=== PATIENT | female | born 1960 | race Caucasian/White ===

== ENCOUNTER 2017-05-14 00:58 | Emergency (ER) | payer SELFPAY | END 2017-05-14 01:59 | disposition home or self-care (01) | LOC: ERS 00:58 | DX: F10.129 Alcohol abuse with intoxication, unspecified (principal); I10 Essential (primary) hypertension; F41.9 Anxiety disorder, unspecified | CPT/HCPCS: 99284 ==

== ENCOUNTER 2023-12-28 11:35 | Emergency (ER) | payer SELFPAY ==
[2023-12-28] MEDS ORDERED: Ketorolac Tromethamine 30 MG (1 mL) VIAL ONE (13:42)
[2023-12-28] MEDS ORDERED: Lorazepam 2 MG/ML VIAL ONE (13:43)
[2023-12-28 15:16] LABS: #Basophils 0.07 10x3/uL (0.0-0.2); %Basophils 0.9 % (0.0-1.0); %Eosinophils 0.6 % (0.0-10.0); %Lymphocytes 15.7 % (21.0-51.0); %Monocytes 10.3 % (0.0-10.0); %Neutrophils 72.2 % (42.0-75.0); Hematocrit 35.6 % (36.0-47.0); Hemoglobin 12.4 g/dL (12.0-16.0); Mean Corpuscular HGB CONC 34.8 g/dL (32.0-36.0); Mean Corpuscular Hemoglobin 38.4 pg (27.0-31.0); Mean Corpuscular Volume 110.2 fL (78.0-98.0); Mean Platelet Volume 10.2 fL (7.4-10.4); Platelet Count 181 10x3/uL (130-400); RBC Distribution Width 13.1 % (11.5-14.5); Red Blood Cell (RBC) Count 3.23 mill/uL (4.20-5.40)
[2023-12-28 15:29] LABS: ALT (SGPT) 48 U/L (8-55); AST (SGOT) 163 U/L (5-34); Albumin 2.3 g/dL (3.4-4.8); Alkaline Phosphatase 183 U/L (40-110); Anion Gap 16 mmol/L (10-20); BUN (Urea Nitrogen) 4 mg/dL (9.8-20.1); Bilirubin, Total 2.6 mg/dL (0.2-1.2); Calc. Creatinine Clearance 0 mL/min (70-130); Calcium 8.2 mg/dL (7.8-10.44); Carbon Dioxide 19 mmol/L (23-31); Chloride 101 mmol/L (98-107); Estimated GFR 102; Globulin 4.6 g/dL (2.4-3.5); Glucose 96 mg/dL (80-115); Potassium 3.4 mmol/L (3.5-5.1); Protein, Total 6.9 g/dL (5.8-8.1); Sodium 133 mmol/L (136-145)
[2023-12-28 15:31] LABS: Acetaminophen Less than 10 mcg/mL (10.0-30.0); Alcohol Less than 10.0 mg/dL (Less than 10); Salicylate Less than 8.0 mg/dL (15.0-30.0)
[2023-12-28 15:32] LABS: INR-International Normal Ratio 1.4; PTT 32.2 sec (22.9-36.1); Prothrombin Time 17.4 sec (12.0-14.7)
[2023-12-28] MEDS ORDERED: Iopamidol-370 76% 500 ML MDV (1 ML CHARGE) ONE (15:39)
[2023-12-28 15:45] LABS: Macrocytosis SLIGHT = 6-15 cells HPF (0-5); Platelet Adequacy Comment Platelets Normal
[2023-12-28] MEDS ORDERED: Thiamine HCl 200 MG/2 ML VIAL ONE (15:50)
== END 2023-12-28 18:30 | disposition home or self-care (01) ==
LOC: ERS 11:35
DX: R18.8 Other ascites (principal); R94.5 Abnormal results of liver function studies; I10 Essential (primary) hypertension
CPT/HCPCS: 36415; 74177; 80053; 80307; 82140; 85025; 85610; 85730; 96374; 96375; J1885; J2060; J3411; Q9967

== ENCOUNTER 2024-02-15 22:09 | Inpatient (IN) | payer SELFPAY ==
[2024-02-15] MEDS ORDERED: Ondansetron PF 4 MG/2 ML Vial ONE (22:21)
[2024-02-15] MEDS ORDERED: Morphine 4 MG/ML VIAL ONE (22:21)
[2024-02-15] MEDS ORDERED: Thiamine HCl 200 MG/2 ML VIAL ONE (23:00)
[2024-02-15 23:18] LABS: #Basophils 0.06 10x3/uL (0.0-0.2); %Basophils 0.6 % (0.0-1.0); %Eosinophils 0.7 % (0.0-10.0); %Lymphocytes 25.9 % (21.0-51.0); %Monocytes 11.3 % (0.0-10.0); %Neutrophils 61.3 % (42.0-75.0); Hematocrit 33.5 % (36.0-47.0); Hemoglobin 11.6 g/dL (12.0-16.0); Mean Corpuscular HGB CONC 34.6 g/dL (32.0-36.0); Mean Corpuscular Hemoglobin 39.6 pg (27.0-31.0); Mean Corpuscular Volume 114.3 fL (78.0-98.0); Mean Platelet Volume 9.3 fL (7.4-10.4); Platelet Count 229 10x3/uL (130-400); RBC Distribution Width 13.6 % (11.5-14.5); Red Blood Cell (RBC) Count 2.93 mill/uL (4.20-5.40)
[2024-02-15 23:26] LABS: INR-International Normal Ratio 1.5; PTT 35.2 sec (22.9-36.1); Prothrombin Time 17.9 sec (12.0-14.7)
[2024-02-15 23:30] LABS: ALT (SGPT) 26 U/L (8-55); AST (SGOT) 92 U/L (5-34); Albumin 1.9 g/dL (3.4-4.8); Alkaline Phosphatase 133 U/L (40-110); Anion Gap 17 mmol/L (10-20); BUN (Urea Nitrogen) 5 mg/dL (9.8-20.1); Bilirubin, Total 3.6 mg/dL (0.2-1.2); Calc. Creatinine Clearance 0 mL/min (70-130); Carbon Dioxide 15 mmol/L (23-31); Chloride 101 mmol/L (98-107); Estimated GFR 105; Globulin 5.2 g/dL (2.4-3.5); Glucose 94 mg/dL (80-115); Lipase 12 U/L (8-78); Potassium 4.2 mmol/L (3.5-5.1); Protein, Total 7.1 g/dL (5.8-8.1); Sodium 129 mmol/L (136-145)
[2024-02-16] MEDS ORDERED: Sodium Chloride 0.9% 100 ML ONE ×2 (00:11→01:32)
[2024-02-16] MEDS ORDERED: cefTRIAXone (ROCEPHIN) 1 GM VIAL ONE ×2 (00:11→01:32)
[2024-02-16] MEDS ORDERED: Lidocaine 1% w/Epinephrine 1:100K 20 ML VIAL ONE (00:20)
[2024-02-16 01:52] LABS: WBC/Nucleated-Auto (BF) 117 /cu.mm
[2024-02-16 02:00] LABS: BF Color Yellow; Body Fluid Source Ascites Body Fluid; Clarity Clear (Clear); Tube # EDTA
[2024-02-16 02:07] LABS: Lactic Acid 1.5 mmol/L (0.5-2.2)
[2024-02-16 02:12] LABS: RBC Count-Automated (BF) 5 /cu.mm
[2024-02-16 02:14] LABS: BF Segmented Neutrophils 19 %; Cell Count Non Hematic 47 %; Lymphocytes 34 %
[2024-02-16 02:17] VITALS: BMI 20.3
[2024-02-16] MEDS ORDERED: Acetaminophen 325 MG TAB PO PRN (06:01)
[2024-02-16] MEDS ORDERED: Ondansetron PF 4 MG/2 ML Vial IVP PRN (06:01)
[2024-02-16] MEDS ORDERED: Ondansetron ODT 4 MG TAB PO PRN (06:01)
[2024-02-16] MEDS ORDERED: Acetaminophen 650 MG Suppository PR PRN (06:01)
[2024-02-16 06:53] LABS: #Basophils 0.06 10x3/uL (0.0-0.2); %Basophils 0.8 % (0.0-1.0); %Eosinophils 0.5 % (0.0-10.0); %Lymphocytes 21.1 % (21.0-51.0); %Monocytes 12.3 % (0.0-10.0); Hematocrit 33.6 % (36.0-47.0); Hemoglobin 11.4 g/dL (12.0-16.0); Mean Corpuscular HGB CONC 33.9 g/dL (32.0-36.0); Mean Corpuscular Hemoglobin 40.9 pg (27.0-31.0); Mean Corpuscular Volume 120.4 fL (78.0-98.0); Mean Platelet Volume 9.9 fL (7.4-10.4); Platelet Count 211 10x3/uL (130-400); RBC Distribution Width 13.9 % (11.5-14.5); Red Blood Cell (RBC) Count 2.79 mill/uL (4.20-5.40)
[2024-02-16 07:03] LABS: Anion Gap 14 mmol/L (10-20); BUN (Urea Nitrogen) 5 mg/dL (9.8-20.1); Calc. Creatinine Clearance 87 mL/min (70-130); Calcium 7.7 mg/dL (7.8-10.44); Carbon Dioxide 17 mmol/L (23-31); Chloride 101 mmol/L (98-107); Estimated GFR 104; Glucose 100 mg/dL (80-115); Potassium 4.4 mmol/L (3.5-5.1); Sodium 128 mmol/L (136-145)
[2024-02-16] MEDS ORDERED: Lorazepam 2 MG/ML VIAL IM PRN (08:40)
[2024-02-16] MEDS ORDERED: Lorazepam 1 MG TAB PO PRN (08:40)
[2024-02-16] MEDS ORDERED: Electrolyte Replacement Protocol 1 EACH FS SCH (08:45)
[2024-02-16] MEDS: Furosemide 20 MG (2 mL) VIAL SLOW IVP SCH (09:41)
[2024-02-16] MEDS: Thiamine HCl 200 MG/2 ML VIAL SLOW IVP SCH (09:43)
[2024-02-16] MEDS: traMADol HCl 50 MG TAB PO PRN (09:44)
[2024-02-16] MEDS: Folic Acid 1 MG TAB PO SCH (09:48)
[2024-02-16] MEDS: Multivit, Therapeutic 1 TAB PO SCH (09:49)
[2024-02-16] MEDS: Spironolactone 100 MG TAB PO SCH (09:49)
[2024-02-16 11:03] LABS: #Basophils 0.05 10x3/uL (0.0-0.2); %Basophils 0.6 % (0.0-1.0); %Eosinophils 1.2 % (0.0-10.0); %Lymphocytes 15.8 % (21.0-51.0); %Monocytes 9.4 % (0.0-10.0); %Neutrophils 72.7 % (42.0-75.0); Hematocrit 39.6 % (36.0-47.0); Hemoglobin 13.5 g/dL (12.0-16.0); Mean Corpuscular HGB CONC 34.1 g/dL (32.0-36.0); Mean Corpuscular Hemoglobin 39.9 pg (27.0-31.0); Mean Corpuscular Volume 117.2 fL (78.0-98.0); Mean Platelet Volume 9.2 fL (7.4-10.4); Platelet Count 261 10x3/uL (130-400); RBC Distribution Width 13.5 % (11.5-14.5); Red Blood Cell (RBC) Count 3.38 mill/uL (4.20-5.40)
[2024-02-16 11:11] LABS: ALT (SGPT) 34 U/L (8-55); AST (SGOT) 100 U/L (5-34); Albumin 2.1 g/dL (3.4-4.8); Alkaline Phosphatase 149 U/L (40-110); Anion Gap 12 mmol/L (10-20); BUN (Urea Nitrogen) 5 mg/dL (9.8-20.1); Bilirubin, Direct 2.4 mg/dL (0.1-0.3); Bilirubin, Total 3.5 mg/dL (0.2-1.2); Calc. Creatinine Clearance 74 mL/min (70-130); Calcium 8.1 mg/dL (7.8-10.44); Carbon Dioxide 24 mmol/L (23-31); Chloride 97 mmol/L (98-107); Estimated GFR 100; Globulin 5.8 g/dL (2.4-3.5); Glucose 106 mg/dL (80-115); Magnesium 1.7 mg/dL (1.6-2.6); Phosphorus 2.8 mg/dL (2.3-4.7); Potassium 3.2 mmol/L (3.5-5.1); Protein, Total 7.9 g/dL (5.8-8.1); Sodium 130 mmol/L (136-145)
[2024-02-16 11:42] LABS: HBCM Index 0.12 S/CO (0-0.79); HBsAg Index 0.22 S/CO (0-0.99); Hep A IgM AB NONREACTIVE (NonReactive); Hep A IgM S/CO 0.16 S/CO (0-0.79); Hep B Surf Ag NONREACTIVE S/CO (NonReactive); Hep C IgG Ab NONREACTIVE S/CO (NonReactive); Hep C Index 0.24 S/CO (0-0.79); Hepatitis B Core IgM Abs NONREACTIVE S/CO (NonReactive)
[2024-02-16] MEDS: Multivitamins, Adult 10 ML, Folic Acid 1 MG, Thiamine HCl 100 MG, Admixture Fee 1 EACH ... IV SCH (12:27)
[2024-02-16] MEDS: Potassium Chloride 20 MEQ TAB PO SCH (12:28)
[2024-02-16] MEDS: Magnesium 2 GM/50 ML(in water) 2 GM in Premix 1 BAG IVPB SCH (12:31)
[2024-02-16] MEDS: chlordiazePOXIDE HCl 5 MG CAP PO SCH (12:32)
[2024-02-16] MEDS: Aluminum & Magnesium Hydroxide 60 ML, diphenhydrAMINE 150 MG, Lidocaine 2% Viscous Solu... SSW SCH (13:57)
[2024-02-16] MEDS ORDERED: Iopamidol-370 76% 500 ML MDV (1 ML CHARGE) ONE (15:00)
[2024-02-16] MEDS: Potassium Bicarbonate/Cit Ac 20 MEQ TAB PO SCH (15:49)
[2024-02-17] MEDS ORDERED: Lorazepam 1 MG TAB PO PRN (08:41)
[2024-02-17] MEDS: Furosemide 20 MG (2 mL) VIAL SLOW IVP SCH (08:49)
[2024-02-17 09:29] VITALS: BMI 20.3
[2024-02-17 09:43] LABS: INR-International Normal Ratio 1.4; Prothrombin Time 17.5 sec (12.0-14.7)
[2024-02-17 09:50] LABS: #Basophils 0.09 10x3/uL (0.0-0.2); %Basophils 1.3 % (0.0-1.0); %Eosinophils 2.4 % (0.0-10.0); %Lymphocytes 18.5 % (21.0-51.0); %Monocytes 11.4 % (0.0-10.0); %Neutrophils 66.1 % (42.0-75.0); Hematocrit 37.7 % (36.0-47.0); Hemoglobin 12.6 g/dL (12.0-16.0); Mean Corpuscular HGB CONC 33.4 g/dL (32.0-36.0); Mean Corpuscular Hemoglobin 40.3 pg (27.0-31.0); Mean Corpuscular Volume 120.4 fL (78.0-98.0); Mean Platelet Volume 9.3 fL (7.4-10.4); Platelet Count 212 10x3/uL (130-400); RBC Distribution Width 13.5 % (11.5-14.5); Red Blood Cell (RBC) Count 3.13 mill/uL (4.20-5.40)
[2024-02-17 10:00] LABS: Iron 90 ug/dL (50-170); Iron Binding Capacity, Total 84 mcg/dL (265-497)
[2024-02-17 10:01] LABS: ALT (SGPT) 25 U/L (8-55); AST (SGOT) 87 U/L (5-34); Albumin 1.9 g/dL (3.4-4.8); Alkaline Phosphatase 122 U/L (40-110); Anion Gap 11 mmol/L (10-20); BUN (Urea Nitrogen) 4 mg/dL (9.8-20.1); Bilirubin, Total 3.3 mg/dL (0.2-1.2); Calc. Creatinine Clearance 90 mL/min (70-130); Carbon Dioxide 22 mmol/L (23-31); Chloride 98 mmol/L (98-107); Estimated GFR 105; Globulin 5.1 g/dL (2.4-3.5); Glucose 109 mg/dL (80-115); Iron 90 ug/dL (50-170); Iron Binding Capacity, Total 85 mcg/dL (265-497); Potassium 3.3 mmol/L (3.5-5.1); Sodium 128 mmol/L (136-145)
[2024-02-17 10:05] LABS: Immunoglob - A (Total IgA) 1332 mg/dL (69-517); Immunoglob - G (Total IgG) 2447 mg/dL (552-1631); Immunoglob - M (Total IgM) 163 mg/dL (33-293)
[2024-02-17 10:17] LABS: Burr Cells SLIGHT = 2-5 cells HPF (0-1); Macrocytosis MODERATE=16-30 cells HPF (0-5); Platelet Adequacy Comment Platelets Normal; Polychromasia SLIGHT = 2-3 cells HPF (0-2)
[2024-02-17] MEDS: Potassium Chloride 20 MEQ TAB PO SCH (11:33)
[2024-02-18 05:57] LABS: Anion Gap 8 mmol/L (10-20); BUN (Urea Nitrogen) 4 mg/dL (9.8-20.1); Calc. Creatinine Clearance 82 mL/min (70-130); Calcium 7.8 mg/dL (7.8-10.44); Carbon Dioxide 26 mmol/L (23-31); Chloride 99 mmol/L (98-107); Estimated GFR 102; Glucose 111 mg/dL (80-115); Magnesium 1.8 mg/dL (1.6-2.6); Potassium 3.4 mmol/L (3.5-5.1); Sodium 130 mmol/L (136-145)
[2024-02-18] MEDS ORDERED: Lorazepam 1 MG TAB PO PRN (08:41)
[2024-02-18] MEDS: Magnesium 2 GM/50 ML(in water) 2 GM in Premix 1 BAG IVPB SCH (08:58)
[2024-02-18] MEDS: Potassium Chloride 20 MEQ TAB PO SCH (12:39)
[2024-02-18] MEDS: Potassium Bicarbonate/Cit Ac 20 MEQ TAB PO SCH (12:56)
[2024-02-18] MEDS ORDERED: Artificial Tear Ophth Sol 15 ML BOT EA EYE PRN (17:36)
[2024-02-18] MEDS: Magnesium Oxide 400 MG TAB PO SCH (20:12)
[2024-02-19 06:53] LABS: #Basophils 0.05 10x3/uL (0.0-0.2); %Basophils 0.7 % (0.0-1.0); %Eosinophils 2.2 % (0.0-10.0); %Lymphocytes 31.8 % (21.0-51.0); %Monocytes 13.6 % (0.0-10.0); %Neutrophils 51.6 % (42.0-75.0); Hematocrit 32.3 % (36.0-47.0); Hemoglobin 11.3 g/dL (12.0-16.0); Mean Corpuscular Hemoglobin 40.1 pg (27.0-31.0); Mean Corpuscular Volume 114.5 fL (78.0-98.0); Platelet Count 254 10x3/uL (130-400); RBC Distribution Width 13.3 % (11.5-14.5); Red Blood Cell (RBC) Count 2.82 mill/uL (4.20-5.40)
[2024-02-19 07:00] LABS: Anion Gap 12 mmol/L (10-20); BUN (Urea Nitrogen) 4 mg/dL (9.8-20.1); Calc. Creatinine Clearance 82 mL/min (70-130); Calcium 7.7 mg/dL (7.8-10.44); Carbon Dioxide 27 mmol/L (23-31); Chloride 95 mmol/L (98-107); Estimated GFR 102; Glucose 102 mg/dL (80-115); Potassium 3.9 mmol/L (3.5-5.1); Sodium 130 mmol/L (136-145)
[2024-02-19] MEDS ORDERED: Lorazepam 0.5 MG TAB PO PRN (08:41)
[2024-02-19] MEDS: Thiamine 100 MG TAB PO SCH (10:38)
[2024-02-19] MEDS: Albumin 25% 25 GM (100 mL) BOT IVPB SCH (10:41)
[2024-02-20] MEDS ORDERED: Furosemide 20 MG TAB PO SCH (08:15)
[2024-02-20] MEDS: Furosemide 40 MG TAB PO SCH ×2 (10:36→10:41)
[2024-02-20 11:13] LABS: ANA Symphony (Qualitative) Negative (Negative); ANA Symphony (Quantitative) 0.5 Ratio (< 0.7 Negative); EliA Vaculitis New Method **** NEW METHOD ****; Mitochondrial Ab 1.5 U/mL (<4 Negative); dsDNA IgG Antibody 1.9 IU/mL (<10 Negative)
[2024-02-20] MEDS: Albumin 25% 25 GM (100 mL) BOT IVPB SCH (20:35)
[2024-02-21] MEDS ORDERED: Polyethylene Glycol 3350 17 GM Packet PO PRN (10:12)
[2024-02-21 12:52] VITALS: BP 130/94; TEMP 97.8
== END 2024-02-21 14:50 | disposition home or self-care (01) | DRG 432 ==
LOC: ERS 22:09 → SURG B 02-16 01:31 → OBSVTOIN 02-16 01:31
PROVIDERS: ADMIT Student in an Organized Health Care Education/Training Program; ATTEND Internal Medicine
PROC: 30233J1 Transfusion of Nonautologous Serum Albumin into Peripheral Vein, Percutaneous Approach (ICD-10-PCS; principal; 2024-02-20)
DX: K70.31 Alcoholic cirrhosis of liver with ascites (principal); K72.00 Acute and subacute hepatic failure without coma; E87.1 Hypo-osmolality and hyponatremia; R18.8 Other ascites; E44.0 Moderate protein-calorie malnutrition; I10 Essential (primary) hypertension; F41.9 Anxiety disorder, unspecified; E87.6 Hypokalemia; E83.42 Hypomagnesemia; R13.12 Dysphagia, oropharyngeal phase; D53.9 Nutritional anemia, unspecified; F32.A Depression, unspecified; F10.10 Alcohol abuse, uncomplicated; Z88.8 Allergy status to other drugs, medicaments and biological substances; Z79.899 Other long term (current) drug therapy; Z98.891 History of uterine scar from previous surgery; Z90.89 Acquired absence of other organs; Z71.41 Alcohol abuse counseling and surveillance of alcoholic; Z68.20 Body mass index [BMI] 20.0-20.9, adult
CPT/HCPCS: 36415; 74177; 80048; 80053; 80074; 82103; 82248; 82390; 82728; 82945; 83516; 83540; 83550; 83605; 83615; 83690; 83735; 84100; 84157; 85025; 85060; 85610; 85730; 86015; 86038; 86225; 87070; 87205; 89051; 93005; 96365; 96366; 96367; 96375; J0696; J1940; J2272; J2405; J3411; J3475; J7042; P9047; Q0163; Q9967

== ENCOUNTER 2024-05-07 16:53 | Emergency (ER) | payer SELFPAY ==
[~2024-05-07 16:53] MED LIST: Iopamidol-370 76% 500 ML MDV (1 ML CHARGE) ONE
[2024-05-07] MEDS ORDERED: Morphine 4 MG/ML VIAL ONE (17:12)
[2024-05-07] MEDS ORDERED: Ondansetron PF 4 MG/2 ML Vial ONE (17:12)
[2024-05-07 17:51] LABS: #Basophils 0.08 10x3/uL (0.0-0.2); %Eosinophils 0.9 % (0.0-10.0); %Lymphocytes 26.9 % (21.0-51.0); %Monocytes 9.5 % (0.0-10.0); %Neutrophils 61.4 % (42.0-75.0); Hematocrit 38.1 % (36.0-47.0); Hemoglobin 12.7 g/dL (12.0-16.0); Mean Corpuscular HGB CONC 33.3 g/dL (32.0-36.0); Mean Corpuscular Hemoglobin 37.5 pg (27.0-31.0); Mean Corpuscular Volume 112.4 fL (78.0-98.0); Mean Platelet Volume 10.2 fL (7.4-10.4); Platelet Count 153 10x3/uL (130-400); RBC Distribution Width 13.2 % (11.5-14.5); Red Blood Cell (RBC) Count 3.39 mill/uL (4.20-5.40)
[2024-05-07 18:11] LABS: Troponin I Less than 0.010 ng/mL (< 0.028)
[2024-05-07 18:14] LABS: Burr Cells SLIGHT = 2-5 cells HPF (0-1); Macrocytosis SLIGHT = 6-15 cells HPF (0-5); Platelet Adequacy Comment Platelets Normal; Polychromasia SLIGHT = 2-3 cells HPF (0-2)
[2024-05-07 19:50] LABS: ALT (SGPT) 12 U/L (8-55); AST (SGOT) 43 U/L (5-34); Albumin 2.1 g/dL (3.4-4.8); Alkaline Phosphatase 114 U/L (40-110); Anion Gap 14 mmol/L (10-20); BUN (Urea Nitrogen) 7 mg/dL (9.8-20.1); Bilirubin, Total 1.6 mg/dL (0.2-1.2); Calc. Creatinine Clearance 0 mL/min (70-130); Calcium 8.4 mg/dL (7.8-10.44); Carbon Dioxide 24 mmol/L (23-31); Chloride 95 mmol/L (98-107); Estimated GFR 102; Globulin 5.9 g/dL (2.4-3.5); Glucose 89 mg/dL (80-115); Lipase 19 U/L (8-78); Potassium 3.5 mmol/L (3.5-5.1); Sodium 129 mmol/L (136-145)
[2024-05-07 20:24] LABS: Lactic Acid 1.03 mmol/L (0.5-2.2)
[2024-05-07] MEDS ORDERED: Albumin 25% 200 ML ONE (22:03)
[2024-05-08 00:53] LABS: Bacteria/HPF None Seen HPF (None Seen); Bilirubin Negative (Negative); Blood, Urine Negative (Negative); Clarity Clear (Clear); Glucose, Urine (Dipstick) Normal (Negative); Ketone, Urine Negative (Negative); Leukocyte Negative Leu/uL (Negative); Nitrite Negative (Negative); Protein, Urine (Dipstick) 30 mg/dL (Neg-Trace); RBC/HPF None Seen HPF (0-3); Urobilinogen Normal mg/dL (Less than 2); WBC/HPF None Seen HPF (0-3)
[2024-05-08 01:04] LABS: RBC Count-Automated (BF) 1585 /cu.mm; WBC/Nucleated-Auto (BF) 57 /cu.mm
[2024-05-08 01:05] LABS: BF Color Yellow; Body Fluid Source Paracentesis Fluid; Clarity Hazy (Clear); Tube # 1
[2024-05-08 01:06] LABS: CAUTI Indications for Culture Pelvic or flank pain
[2024-05-08 01:07] LABS: Urine Culture Reflex No No
[2024-05-08 01:08] LABS: Specific Gravity, Urine Greater than 1.060 (1.002-1.036)
[2024-05-08 02:00] LABS: BF Segmented Neutrophils 8 %; Cell Count Non Hematic 27 %; Lymphocytes 65 %
== END 2024-05-08 04:40 | disposition home or self-care (01) ==
LOC: ERS 16:53
DX: R18.8 Other ascites (principal); R10.11 Right upper quadrant pain; R10.84 Generalized abdominal pain; I10 Essential (primary) hypertension; Z55.6 Problems related to health literacy
CPT/HCPCS: 36415; 49083; 74177; 76705; 80053; 81001; 83605; 83690; 84484; 85025; 85060; 86850; 86900; 86901; 87040; 87070; 87205; 89051; 93005; 96365; 96366; 96375; J2272; J2405; P9047; Q9967

== ENCOUNTER 2024-05-09 16:14 | Inpatient (IN) | payer SELFPAY ==
[2024-05-09] MEDS ORDERED: Morphine 4 MG/ML VIAL ONE (17:17)
[2024-05-09] MEDS ORDERED: Ondansetron PF 4 MG/2 ML Vial ONE ×2 (17:17→20:17)
[2024-05-09 17:27] LABS: ALT (SGPT) 14 U/L (8-55); AST (SGOT) 54 U/L (5-34); Alkaline Phosphatase 106 U/L (40-110); Anion Gap 17 mmol/L (10-20); BUN (Urea Nitrogen) 5 mg/dL (9.8-20.1); Bilirubin, Total 1.4 mg/dL (0.2-1.2); Calc. Creatinine Clearance 0 mL/min (70-130); Calcium 9.1 mg/dL (7.8-10.44); Carbon Dioxide 22 mmol/L (23-31); Chloride 98 mmol/L (98-107); Estimated GFR 101; Globulin 5.5 g/dL (2.4-3.5); Glucose 108 mg/dL (80-115); Protein, Total 8.5 g/dL (5.8-8.1); Sodium 133 mmol/L (136-145)
[2024-05-09 17:40] LABS: #Basophils 0.06 10x3/uL (0.0-0.2); %Basophils 0.8 % (0.0-1.0); %Eosinophils 0.8 % (0.0-10.0); %Lymphocytes 27.8 % (21.0-51.0); %Monocytes 8.3 % (0.0-10.0); Hematocrit 39.3 % (36.0-47.0); Hemoglobin 13.9 g/dL (12.0-16.0); Mean Corpuscular HGB CONC 35.4 g/dL (32.0-36.0); Mean Corpuscular Hemoglobin 37.9 pg (27.0-31.0); Mean Corpuscular Volume 107.1 fL (78.0-98.0); Platelet Count 320 10x3/uL (130-400); RBC Distribution Width 12.8 % (11.5-14.5); Red Blood Cell (RBC) Count 3.67 mill/uL (4.20-5.40)
[2024-05-09] MEDS ORDERED: Ondansetron PF 4 MG/2 ML Vial IVP PRN (18:24)
[2024-05-09] MEDS ORDERED: traMADol HCl 50 MG TAB PO PRN (18:28)
[2024-05-09] MEDS ORDERED: fentaNYL PF 100 MCG/2 ML SYRINGE ONE (18:47)
[2024-05-09] MEDS ORDERED: PROPOFOL 20 ML ONE (18:47)
[2024-05-09] MEDS ORDERED: MINERAL OIL/WHITE PETROLATUM 3.5 GM TUBE ONE (18:52)
[2024-05-09] MEDS ORDERED: Albumin 5% 250 ML ONE (18:59)
[2024-05-09] MEDS ORDERED: Rocuronium Bromide 10 MG/ML (10ML VIAL) ONE (19:34)
[2024-05-09] MEDS ORDERED: SUCCINYLCHOLINE/SOD CL,ISO/PF 200 MG/10 ML SYRINGE FS ONE (19:34)
[2024-05-09] MEDS ORDERED: CEFAZOLIN 1 GM VIAL ONE (19:51)
[2024-05-09 20:00] LABS: INR-International Normal Ratio 1.4; PTT 30.8 sec (22.9-36.1); Prothrombin Time 17.2 sec (12.0-14.7)
[2024-05-09] MEDS ORDERED: SUGAMMADEX SODIUM 200 MG/2 ML VIAL ONE (20:08)
[2024-05-09] MEDS ORDERED: Dexamethasone 4 mg/ml Vial ONE (20:17)
[2024-05-09] MEDS ORDERED: Promethazine HCl 25 MG/ML VIAL IM PRN (20:31)
[2024-05-09] MEDS ORDERED: Ondansetron HCl/PF 4 MG/2 ML Vial IVP PRN (20:31)
[2024-05-09] MEDS ORDERED: fentaNYL 50 mcg/mL 1 mL Vial ONE (21:09)
[2024-05-09] MEDS: Morphine 2 MG/ML VIAL SLOW IVP PRN (23:10)
[2024-05-09] MEDS: Famotidine/PF 20 mg/2ml Vial SLOW IVP SCH (23:11)
[2024-05-09] MEDS: Sodium Chloride 0.9% 1,000 ML IV SCH (23:11)
[2024-05-09 23:35] VITALS: BMI 25.6
[2024-05-10] MEDS: traMADol HCl 50 MG TAB PO SCH (00:19)
[2024-05-10 04:41] LABS: #Basophils Less than 0.03 10x3/uL (0.0-0.2); #Eosinophils Less than 0.03 10x3/uL (0.0-0.7); %Basophils 0.3 % (0.0-1.0); %Lymphocytes 8.9 % (21.0-51.0); %Monocytes 3.3 % (0.0-10.0); %Neutrophils 87.2 % (42.0-75.0); Hematocrit 32.6 % (36.0-47.0); Mean Corpuscular HGB CONC 33.7 g/dL (32.0-36.0); Mean Corpuscular Hemoglobin 37.4 pg (27.0-31.0); Mean Corpuscular Volume 110.9 fL (78.0-98.0); Platelet Count 271 10x3/uL (130-400); RBC Distribution Width 12.7 % (11.5-14.5); Red Blood Cell (RBC) Count 2.94 mill/uL (4.20-5.40)
[2024-05-10 04:44] LABS: INR-International Normal Ratio 1.5; PTT 31.3 sec (22.9-36.1)
[2024-05-10 04:47] LABS: Lactic Acid 1.31 mmol/L (0.5-2.2)
[2024-05-10 04:52] LABS: Anion Gap 13 mmol/L (10-20); BUN (Urea Nitrogen) 6 mg/dL (9.8-20.1); Calc. Creatinine Clearance 107 mL/min (70-130); Calcium 7.7 mg/dL (7.8-10.44); Carbon Dioxide 21 mmol/L (23-31); Chloride 103 mmol/L (98-107); Estimated GFR 103; Glucose 143 mg/dL (80-115); Potassium 4.3 mmol/L (3.5-5.1); Sodium 133 mmol/L (136-145)
[2024-05-10] MEDS: Folic Acid 1 MG TAB PO SCH (07:59)
[2024-05-10] MEDS: Thiamine 100 MG TAB PO SCH (07:59)
[2024-05-10] MEDS: Furosemide 40 MG TAB PO SCH (12:26)
[2024-05-10] MEDS: Spironolactone 100 MG TAB PO SCH (12:26)
[2024-05-11] MEDS: Furosemide 40 MG TAB PO SCH (06:41)
[2024-05-11] MEDS: Spironolactone 100 MG TAB PO SCH (09:19)
[2024-05-11 09:54] VITALS: TEMP 97.6
[2024-05-11 15:26] VITALS: BP 114/81
[2024-05-13] MEDS ORDERED: FLU (Fluarix Triv) TS24-25(6MOS UP)/PF 45 MCG/0.5 ML Syringe IM ONE (09:00)
== END 2024-05-11 16:30 | disposition home or self-care (01) | DRG 354 ==
LOC: ERS 16:14 → SURG A 18:24
PROVIDERS: ADMIT Surgery; ATTEND Surgery
PROC: 0WQF0ZZ Repair Abdominal Wall, Open Approach (ICD-10-PCS; principal; 2024-05-09)
DX: K42.0 Umbilical hernia with obstruction, without gangrene (principal); E46 Unspecified protein-calorie malnutrition; R18.8 Other ascites; F41.9 Anxiety disorder, unspecified; F32.A Depression, unspecified; K74.60 Unspecified cirrhosis of liver; Z88.8 Allergy status to other drugs, medicaments and biological substances; Z68.25 Body mass index [BMI] 25.0-25.9, adult
CPT/HCPCS: 36415; 74176; 80048; 80053; 83605; 85025; 85610; 85730; 86141; 86850; 86870; 86900; 86901; A6258; J0690; J1100; J2272; J2405; J2704; J3010; J3490; J7030; P9045

== ENCOUNTER 2024-06-07 13:29 | Emergency (ER) | payer SELFPAY ==
[2024-06-07 14:40] LABS: #Basophils 0.06 10x3/uL (0.0-0.2); %Basophils 0.7 % (0.0-1.0); %Eosinophils 0.6 % (0.0-10.0); %Lymphocytes 21.1 % (21.0-51.0); %Monocytes 7.8 % (0.0-10.0); %Neutrophils 69.6 % (42.0-75.0); Hematocrit 35.2 % (36.0-47.0); Mean Corpuscular HGB CONC 34.1 g/dL (32.0-36.0); Mean Corpuscular Hemoglobin 35.7 pg (27.0-31.0); Mean Corpuscular Volume 104.8 fL (78.0-98.0); Mean Platelet Volume 9.1 fL (7.4-10.4); Platelet Count 216 10x3/uL (130-400); RBC Distribution Width 11.9 % (11.5-14.5); Red Blood Cell (RBC) Count 3.36 mill/uL (4.20-5.40)
[2024-06-07] MEDS ORDERED: Morphine 2 MG/ML VIAL ONE (14:42)
[2024-06-07 14:55] LABS: ALT (SGPT) 13 U/L (8-55); AST (SGOT) 41 U/L (5-34); Albumin 2.8 g/dL (3.4-4.8); Alkaline Phosphatase 88 U/L (40-110); Anion Gap 16 mmol/L (10-20); BUN (Urea Nitrogen) 6 mg/dL (9.8-20.1); Bilirubin, Total 0.7 mg/dL (0.2-1.2); Calc. Creatinine Clearance 0 mL/min (70-130); Calcium 8.8 mg/dL (7.8-10.44); Carbon Dioxide 20 mmol/L (23-31); Chloride 102 mmol/L (98-107); Estimated GFR 103; Globulin 5.4 g/dL (2.4-3.5); Glucose 100 mg/dL (80-115); Lipase 77 U/L (8-78); Potassium 3.9 mmol/L (3.5-5.1); Protein, Total 8.2 g/dL (5.8-8.1); Sodium 134 mmol/L (136-145)
[2024-06-07 15:00] LABS: Troponin I Less than 0.010 ng/mL (< 0.028)
[2024-06-07] MEDS ORDERED: Ondansetron PF 4 MG/2 ML Vial ONE (15:37)
[2024-06-07 15:59] LABS: Bacteria/HPF None Seen HPF (None Seen); Bilirubin Negative (Negative); Blood, Urine Negative (Negative); CAUTI Indications for Culture Pelvic or flank pain; Clarity Clear (Clear); Glucose, Urine (Dipstick) Normal (Negative); Ketone, Urine Negative (Negative); Leukocyte Negative Leu/uL (Negative); Nitrite Negative (Negative); Protein, Urine (Dipstick) Negative (Neg-Trace); Specific Gravity, Urine 1.024 (1.002-1.036); Squamous Epithelial None Seen HPF (0-3); Urobilinogen Normal mg/dL (Less than 2); WBC/HPF 0-3 HPF (0-3)
[2024-06-07 16:06] LABS: RBC/HPF 0-3 HPF (0-3)
[2024-06-07 16:08] LABS: Urine Culture Reflex No No
== END 2024-06-07 17:00 | disposition home or self-care (01) ==
LOC: ERS 13:29
DX: R10.11 Right upper quadrant pain (principal); R10.13 Epigastric pain; R18.8 Other ascites; I10 Essential (primary) hypertension; Z79.899 Other long term (current) drug therapy
CPT/HCPCS: 36415; 74177; 80053; 81001; 83605; 83690; 84484; 85025; 93005; 96374; J2272; J2405; Q9967

== ENCOUNTER 2024-07-31 03:19 | Inpatient (IN) | payer SELFPAY ==
[2024-07-31] MEDS ORDERED: Ondansetron PF 4 MG/2 ML Vial ONE (04:04)
[2024-07-31] MEDS ORDERED: Morphine 4 MG/ML VIAL ONE ×3 (04:06→11:17)
[2024-07-31 05:16] LABS: Chloride 102 mmol/L (98-107); Potassium 4.1 mmol/L (3.5-5.1); Sodium 139 mmol/L (136-145)
[2024-07-31 05:17] LABS: Albumin 3.6 g/dL (3.1-4.5); Calcium 9.6 mg/dL (7.8-10.44); Glucose 112 mg/dL (80-115)
[2024-07-31 05:18] LABS: Globulin 4.9 g/dL (2.4-3.5); Protein, Total 8.5 g/dL (5.8-8.1)
[2024-07-31 05:19] LABS: Anion Gap 22 mmol/L (10-20); Carbon Dioxide 19 mmol/L (23-31)
[2024-07-31 05:20] LABS: Alkaline Phosphatase 170 U/L (40-110)
[2024-07-31 05:21] LABS: BUN (Urea Nitrogen) 14 mg/dL (9.8-20.1); Calc. Creatinine Clearance 0 mL/min (70-130); Estimated GFR 105; Lipase 20 U/L (8-78)
[2024-07-31 05:23] LABS: ALT (SGPT) 26 U/L (Less than 34); AST (SGOT) 127 U/L (11-34)
[2024-07-31 05:36] LABS: Troponin I 0.017 ng/mL (< 0.028)
[2024-07-31 05:47] LABS: #Basophils 0.05 10x3/uL (0.0-0.2); %Basophils 0.8 % (0.0-1.0); %Eosinophils 0.2 % (0.0-10.0); %Lymphocytes 9.6 % (21.0-51.0); %Monocytes 10.9 % (0.0-10.0); %Neutrophils 75.8 % (42.0-75.0); Anisocytosis SLIGHT = 6-15 cells HPF (0-5); Hematocrit 36.6 % (36.0-47.0); Hemoglobin 12.4 g/dL (12.0-16.0); Macrocytosis MODERATE=16-30 cells HPF (0-5); Mean Corpuscular HGB CONC 34.4 g/dL (32.0-36.0); Mean Corpuscular Hemoglobin 35.5 pg (27.0-31.0); Mean Corpuscular Volume 103.1 fL (78.0-98.0); Platelet Adequacy Comment Platelets Decreased; Platelet Count 106 10x3/uL (130-400); Polychromasia SLIGHT = 2-3 cells HPF (0-2); RBC Distribution Width 13.5 % (11.5-14.5); Red Blood Cell (RBC) Count 3.55 mill/uL (4.20-5.40)
[2024-07-31 06:00] LABS: INR-International Normal Ratio 1.5; PTT 34.6 sec (22.9-36.1)
[2024-07-31 08:17] LABS: Bacteria/HPF None Seen HPF (None Seen); Bilirubin Negative (Negative); Blood, Urine Negative (Negative); CAUTI Indications for Culture Pelvic or flank pain; Clarity Clear (Clear); Glucose, Urine (Dipstick) Normal (Negative); Ketone, Urine 20 mg/dL (Negative); Leukocyte Negative Leu/uL (Negative); Nitrite Negative (Negative); Protein, Urine (Dipstick) 20 mg/dL (Neg-Trace); RBC/HPF 0-3 HPF (0-3); Specific Gravity, Urine 1.027 (1.002-1.036); Squamous Epithelial 0-3 HPF (0-3); Urobilinogen Normal mg/dL (Less than 2); WBC/HPF 0-3 HPF (0-3); pH, Urine 5.5 (5.0-9.0)
[2024-07-31 08:18] LABS: Urine Culture Reflex No No
[2024-07-31 08:56] LABS: Lactic Acid 2.95 mmol/L (0.50-2.20)
[2024-07-31] MEDS ORDERED: Promethazine HCl 25 MG/ML VIAL ONE (09:20)
[2024-07-31] MEDS ORDERED: Dicyclomine 20 MG/2 ML VIAL ONE (09:20)
[2024-07-31] MEDS ORDERED: dilTIAZem 25 MG/5 ML VIAL ONE (10:00)
[2024-07-31 10:12] LABS: #Basophils 0.03 10x3/uL (0.0-0.2); #Eosinophils Less than 0.03 10x3/uL (0.0-0.7); %Basophils 0.4 % (0.0-1.0); %Lymphocytes 6.3 % (21.0-51.0); %Monocytes 10.5 % (0.0-10.0); %Neutrophils 82.4 % (42.0-75.0); Hematocrit 34.2 % (36.0-47.0); Hemoglobin 11.5 g/dL (12.0-16.0); Mean Corpuscular HGB CONC 33.6 g/dL (32.0-36.0); Mean Corpuscular Hemoglobin 35.6 pg (27.0-31.0); Mean Corpuscular Volume 105.9 fL (78.0-98.0); Mean Platelet Volume 10.4 fL (7.4-10.4); Platelet Count 109 10x3/uL (130-400); RBC Distribution Width 13.5 % (11.5-14.5); Red Blood Cell (RBC) Count 3.23 mill/uL (4.20-5.40)
[2024-07-31] MEDS ORDERED: Iopamidol 370 76% 100 ML VIAL ONE (10:46)
[2024-07-31 11:14] LABS: Anisocytosis MODERATE=16-30 cells HPF (0-5); Hypochromia SLIGHT = 6-15 cells HPF (0-5); Macrocytosis MODERATE=16-30 cells HPF (0-5); Platelet Adequacy Comment Platelets Decreased
[2024-07-31] MEDS ORDERED: dilTIAZem 125 MG/25 ML SDV ONE ×2 (11:17→19:23)
[2024-07-31] MEDS ORDERED: Albumin 25% 100 ML ONE (11:17)
[2024-07-31] MEDS ORDERED: Lorazepam 2 MG/ML VIAL IM PRN (11:30)
[2024-07-31] MEDS ORDERED: Electrolyte Replacement Protocol 1 EACH FS SCH (11:30)
[2024-07-31] MEDS ORDERED: Ondansetron ODT 4 MG TAB PO PRN (11:30)
[2024-07-31] MEDS ORDERED: cefTRIAXone\\ROCEPHIN 1 GM in Sodium Chloride 0.9% 100 ML IVPB SCH (11:45)
[2024-07-31] MEDS ORDERED: Morphine 4 MG/ML VIAL SLOW IVP PRN (11:58)
[2024-07-31] MEDS ORDERED: Lorazepam 1 MG TAB ONE ×3 (13:32→17:19)
[2024-07-31] MEDS ORDERED: Thiamine HCl 200 MG/2 ML VIAL ONE (13:32)
[2024-07-31] MEDS ORDERED: Pantoprazole 40 MG VIAL ONE (13:32)
[2024-07-31 13:38] LABS: Phosphorus 3.3 mg/dL (2.5-4.5)
[2024-07-31 13:40] LABS: Magnesium 1.6 mg/dL (1.6-2.6)
[2024-07-31] MEDS: Lactated Ringer's 1,000 ML IV SCH (13:44)
[2024-07-31] MEDS: Pantoprazole 40 MG VIAL IVP SCH ×2 (13:44→13:45)
[2024-07-31] MEDS: Lorazepam 1 MG TAB PO SCH (13:44)
[2024-07-31] MEDS: Thiamine HCl 200 MG/2 ML VIAL SLOW IVP SCH (13:45)
[2024-07-31 13:50] VITALS: BMI 16.5
[2024-07-31] MEDS: Lorazepam 1 MG TAB PO PRN (15:10)
[2024-07-31] MEDS: Magnesium 2 GM/50 ML(in water) 2 GM in Premix 1 BAG IVPB SCH (22:48)
[2024-08-01 04:07] LABS: Amphetamine Not Detected (NotDetected); Barbiturates Screen Not Detected (NotDetected); Benzodiazepine Screen Detected (NotDetected); Cocaine Metabolite Screen Not Detected (NotDetected); Methadone Not Detected (NotDetected); Methamphetamine Not Detected (NotDetected); Opiate Screen Detected (NotDetected); Oxycodone Screen Not Detected (NotDetected); Phencyclidine (PCP) Not Detected (NotDetected); THC/Cannabinoid Screen Not Detected (NotDetected); Tricyclic Screen Not Detected (NotDetected)
[2024-08-01 05:25] LABS: #Basophils 0.04 10x3/uL (0.0-0.2); %Basophils 0.6 % (0.0-1.0); %Eosinophils 1.5 % (0.0-10.0); %Lymphocytes 20.2 % (21.0-51.0); %Neutrophils 67.4 % (42.0-75.0); Hematocrit 34.1 % (36.0-47.0); Hemoglobin 11.4 g/dL (12.0-16.0); Mean Corpuscular HGB CONC 33.4 g/dL (32.0-36.0); Mean Corpuscular Hemoglobin 35.5 pg (27.0-31.0); Mean Corpuscular Volume 106.2 fL (78.0-98.0); Mean Platelet Volume 10.8 fL (7.4-10.4); Platelet Count 89 10x3/uL (130-400); RBC Distribution Width 13.3 % (11.5-14.5); Red Blood Cell (RBC) Count 3.21 mill/uL (4.20-5.40)
[2024-08-01 06:05] LABS: ALT (SGPT) 19 U/L (Less than 34); AST (SGOT) 83 U/L (11-34); Albumin 3.2 g/dL (3.1-4.5); Alkaline Phosphatase 134 U/L (40-110); Anion Gap 15 mmol/L (10-20); BUN (Urea Nitrogen) 12 mg/dL (9.8-20.1); Bilirubin, Total 3.7 mg/dL (0.3-1.2); Calc. Creatinine Clearance 69 mL/min (70-130); Calcium 8.6 mg/dL (7.8-10.44); Carbon Dioxide 23 mmol/L (23-31); Chloride 101 mmol/L (98-107); Estimated GFR 103; Globulin 3.9 g/dL (2.4-3.5); Glucose 113 mg/dL (80-115); Potassium 3.7 mmol/L (3.5-5.1); Protein, Total 7.1 g/dL (5.8-8.1); Sodium 135 mmol/L (136-145)
[2024-08-01] MEDS ORDERED: Electrolyte Replacement Protocol FS PRN (07:15)
[2024-08-01 08:26] VITALS: TEMP 98.4
[2024-08-01 10:21] VITALS: BP 118/63
[2024-08-01] MEDS ORDERED: dilTIAZem 125 MG in Sodium Chloride 0.9% 100 ML IVPB SCH (11:00)
[2024-08-01] MEDS ORDERED: Lorazepam 1 MG TAB PO PRN (11:30)
[2024-08-01] MEDS: Furosemide 40 MG TAB PO SCH (12:22)
[2024-08-01] MEDS: Folic Acid 1 MG TAB PO SCH (12:23)
[2024-08-01] MEDS: Spironolactone 100 MG TAB PO SCH (12:23)
[2024-08-01] MEDS: Multivit, Therapeutic 1 TAB PO SCH (12:23)
[2024-08-01] MEDS: cefTRIAXone\\ROCEPHIN 1 GM in Sodium Chloride 0.9% 100 ML IVPB SCH (12:23)
[2024-08-01] MEDS ORDERED: cefTRIAXone\\ROCEPHIN 1 GM in Sodium Chloride 0.9% 100 ML IVPB SCH (13:00)
[2024-08-02] MEDS ORDERED: Lorazepam 1 MG TAB PO PRN (11:30)
[2024-08-02] MEDS ORDERED: Lorazepam 0.5 MG TAB PO SCH (11:30)
[2024-08-03] MEDS ORDERED: Lorazepam 0.5 MG TAB PO PRN (11:30)
[2024-08-03] MEDS ORDERED: Thiamine 100 MG TAB PO SCH (12:00)
== END 2024-08-01 12:18 | disposition left against medical advice (07) | DRG 432 ==
LOC: ERS 03:19 → ERHOLD 11:27 → 2NO 19:41
PROVIDERS: ADMIT Family Medicine; ATTEND Family Medicine
DX: K70.31 Alcoholic cirrhosis of liver with ascites (principal); K57.31 Diverticulosis of large intestine without perforation or abscess with bleeding; D68.9 Coagulation defect, unspecified; G89.29 Other chronic pain; R00.0 Tachycardia, unspecified; E86.0 Dehydration; E86.9 Volume depletion, unspecified; F41.9 Anxiety disorder, unspecified; I45.10 Unspecified right bundle-branch block; E80.6 Other disorders of bilirubin metabolism; R74.01 Elevation of levels of liver transaminase levels; D53.9 Nutritional anemia, unspecified; F10.10 Alcohol abuse, uncomplicated; Z88.8 Allergy status to other drugs, medicaments and biological substances; Z79.899 Other long term (current) drug therapy
CPT/HCPCS: 36415; 74177; 76705; 80053; 80306; 81001; 82140; 83605; 83690; 83735; 84100; 84484; 85025; 85610; 85730; 86850; 86900; 86901; 87428; 93005; 96365; 96366; 96372; 96375; 96376; J2270; J2405; J2470; J2550; J3411; J3475; J7120; P9047; Q9967

== ENCOUNTER 2025-03-01 20:42 | Inpatient (IN) | payer SELFPAY ==
[2025-03-01 21:35] LABS: ALT (SGPT) 19 U/L (Less than 34); AST (SGOT) 73 U/L (11-34); Albumin 2.3 g/dL (3.1-4.5); Alkaline Phosphatase 109 U/L (40-110); Anion Gap 18 mmol/L (10-20); BUN (Urea Nitrogen) 7 mg/dL (9.8-20.1); Bilirubin, Total 3.9 mg/dL (0.3-1.2); Calc. Creatinine Clearance 0 mL/min (70-130); Calcium 8.4 mg/dL (7.8-10.44); Carbon Dioxide 18 mmol/L (23-31); Chloride 101 mmol/L (98-107); Globulin 5.2 g/dL (2.4-3.5); Glucose 98 mg/dL (80-115); Lipase 18 U/L (8-78); Potassium 4.2 mmol/L (3.5-5.1); Sodium 133 mmol/L (136-145)
[2025-03-01] MEDS ORDERED: Pantoprazole 40 MG VIAL ONE (21:46)
[2025-03-01 22:59] LABS: #Basophils 0.06 10x3/uL (0.0-0.2); #Eosinophils Less than 0.03 10x3/uL (0.0-0.7); #Monocytes 0.67 10x3/uL (0.11-0.59); #Neutrophils 4.43 10x3/uL (1.40-6.50); %Basophils 1.0 % (0.0-1.0); %Eosinophils 0.2 % (0.0-10.0); %Lymphocytes 16.4 % (21.0-51.0); %Monocytes 10.8 % (0.0-10.0); %Neutrophils 71.3 % (42.0-75.0); Hematocrit 37.3 % (36.0-47.0); Hemoglobin 12.6 g/dL (12.0-16.0); Mean Corpuscular Hemoglobin 40.0 pg (27.0-31.0); Mean Corpuscular Volume 118.4 fL (78.0-98.0); Platelet Count 191 10x3/uL (130-400); Red Blood Cell (RBC) Count 3.15 mill/uL (4.20-5.40); White Blood Cell (WBC) Count 6.21 10x3/uL (4.8-10.8)
[2025-03-01 23:09] LABS: Acetaminophen Less than 10 mcg/mL (Less than 10); Salicylate Less than 8.0 mg/dL (Less than 8.0)
[2025-03-01 23:12] LABS: INR-International Normal Ratio 1.5; Prothrombin Time 18.3 sec (12.0-14.7)
[2025-03-01 23:13] LABS: PTT 37.2 sec (22.9-36.1)
[2025-03-02 01:09] LABS: RBC Count-Automated (BF) 0 /cu.mm; WBC/Nucleated-Auto (BF) 78 /cu.mm
[2025-03-02] MEDS ORDERED: Acetaminophen 325 MG TAB PO PRN (01:32)
[2025-03-02] MEDS ORDERED: Ondansetron PF 4 MG/2 ML Vial IVP PRN (01:32)
[2025-03-02] MEDS ORDERED: Electrolyte Replacement Protocol 1 EACH FS SCH (01:45)
[2025-03-02 02:17] LABS: BF Segmented Neutrophils 5 %; Cell Count Non Hematic 43 %
[2025-03-02 03:32] VITALS: BMI 20.9
[2025-03-02 03:44] LABS: ALT (SGPT) 14 U/L (Less than 34); AST (SGOT) 54 U/L (11-34); Albumin 2.9 g/dL (3.1-4.5); Alkaline Phosphatase 74 U/L (40-110); Anion Gap 15 mmol/L (10-20); BUN (Urea Nitrogen) 7 mg/dL (9.8-20.1); Bilirubin, Total 3.8 mg/dL (0.3-1.2); Calc. Creatinine Clearance 92 mL/min (70-130); Calcium 8.4 mg/dL (7.8-10.44); Carbon Dioxide 22 mmol/L (23-31); Chloride 99 mmol/L (98-107); Globulin 4.0 g/dL (2.4-3.5); Glucose 79 mg/dL (80-115); Magnesium 1.7 mg/dL (1.6-2.6); Potassium 3.8 mmol/L (3.5-5.1); Sodium 132 mmol/L (136-145)
[2025-03-02 05:37] LABS: INR-International Normal Ratio 1.8; PTT 40.7 sec (22.9-36.1); Prothrombin Time 20.9 sec (12.0-14.7)
[2025-03-02] MEDS ORDERED: Furosemide 40 MG TAB PO SCH (09:00)
[2025-03-02] MEDS: Magnesium 2 GM/50 ML(in water) 2 GM in Premix 1 BAG IVPB SCH (09:04)
[2025-03-02] MEDS: Multivit, Therapeutic 1 TAB PO SCH (09:05)
[2025-03-02] MEDS: Pantoprazole 40 MG DR.TAB PO SCH (09:05)
[2025-03-02] MEDS: Folic Acid 1 MG TAB PO SCH (09:05)
[2025-03-02] MEDS: Albumin 25% 25 GM (100 mL) BOT IVPB SCH (14:16)
[2025-03-03 05:43] LABS: ALT (SGPT) 10 U/L (Less than 34); AST (SGOT) 40 U/L (11-34); Albumin 3.0 g/dL (3.1-4.5); Alkaline Phosphatase 58 U/L (40-110); Anion Gap 10 mmol/L (10-20); BUN (Urea Nitrogen) 5 mg/dL (9.8-20.1); Bilirubin, Total 3.1 mg/dL (0.3-1.2); Calc. Creatinine Clearance 107 mL/min (70-130); Calcium 8.0 mg/dL (7.8-10.44); Carbon Dioxide 23 mmol/L (23-31); Chloride 105 mmol/L (98-107); Globulin 2.7 g/dL (2.4-3.5); Glucose 109 mg/dL (80-115); Magnesium 2.0 mg/dL (1.6-2.6); Potassium 3.1 mmol/L (3.5-5.1); Sodium 135 mmol/L (136-145)
[2025-03-03 05:53] LABS: INR-International Normal Ratio 2.0; Prothrombin Time 22.4 sec (12.0-14.7)
[2025-03-03 05:54] LABS: PTT 43.3 sec (22.9-36.1)
[2025-03-03] MEDS: PHOS-NAK 1 PKT PACK PO SCH (08:28)
[2025-03-03] MEDS: Magnesium 2 GM/50 ML(in water) 2 GM in Premix 1 BAG IVPB SCH (08:29)
[2025-03-03] MEDS: Furosemide 20 MG TAB PO SCH (09:21)
[2025-03-03] MEDS: Acetaminophen 325 MG TAB PO PRN (17:38)
[2025-03-04 07:34] LABS: INR-International Normal Ratio 1.9; Prothrombin Time 22.1 sec (12.0-14.7)
[2025-03-04 07:35] LABS: PTT 40.7 sec (22.9-36.1)
[2025-03-04 07:36] LABS: Anion Gap 10 mmol/L (10-20); BUN (Urea Nitrogen) 4 mg/dL (9.8-20.1); Calc. Creatinine Clearance 100 mL/min (70-130); Calcium 8.3 mg/dL (7.8-10.44); Carbon Dioxide 24 mmol/L (23-31); Chloride 105 mmol/L (98-107); Glucose 105 mg/dL (80-115); Magnesium 1.9 mg/dL (1.6-2.6); Potassium 3.5 mmol/L (3.5-5.1); Sodium 135 mmol/L (136-145)
[2025-03-04 07:40] LABS: ALT (SGPT) 11 U/L (Less than 34); AST (SGOT) 45 U/L (11-34); Albumin 2.9 g/dL (3.1-4.5); Alkaline Phosphatase 67 U/L (40-110); Bilirubin, Direct 1.4 mg/dL (0.1-0.3); Bilirubin, Total 2.5 mg/dL (0.3-1.2)
[2025-03-04 07:47] LABS: #Basophils 0.04 10x3/uL (0.0-0.2); #Eosinophils 0.10 10x3/uL (0.0-0.7); #Monocytes 0.79 10x3/uL (0.11-0.59); #Neutrophils 3.37 10x3/uL (1.40-6.50); %Basophils 0.7 % (0.0-1.0); %Eosinophils 1.8 % (0.0-10.0); %Lymphocytes 23.3 % (21.0-51.0); %Monocytes 14.1 % (0.0-10.0); %Neutrophils 59.9 % (42.0-75.0); Hematocrit 28.5 % (36.0-47.0); Hemoglobin 9.5 g/dL (12.0-16.0); Mean Corpuscular Hemoglobin 38.3 pg (27.0-31.0); Mean Corpuscular Volume 114.9 fL (78.0-98.0); Platelet Count 151 10x3/uL (130-400); Red Blood Cell (RBC) Count 2.48 mill/uL (4.20-5.40); White Blood Cell (WBC) Count 5.62 10x3/uL (4.8-10.8)
[2025-03-04 08:18] LABS: Macrocytosis MODERATE=16-30 cells HPF (0-5); Platelet Adequacy Comment Platelets Normal; Polychromasia SLIGHT = 2-3 cells HPF (0-2); Schistocytes SLIGHT = 2-5 cells HPF (0-1)
[2025-03-04] MEDS: Furosemide 40 MG TAB PO SCH (09:47)
[2025-03-04] MEDS: Magnesium 2 GM/50 ML(in water) 2 GM in Premix 1 BAG IVPB SCH (12:56)
[2025-03-05 05:04] LABS: ALT (SGPT) 11 U/L (Less than 34); AST (SGOT) 47 U/L (11-34); Albumin 2.9 g/dL (3.1-4.5); Alkaline Phosphatase 71 U/L (40-110); Anion Gap 11 mmol/L (10-20); BUN (Urea Nitrogen) 6 mg/dL (9.8-20.1); Bilirubin, Direct 1.4 mg/dL (0.1-0.3); Bilirubin, Total 2.6 mg/dL (0.3-1.2); Calc. Creatinine Clearance 90 mL/min (70-130); Calcium 8.2 mg/dL (7.8-10.44); Carbon Dioxide 26 mmol/L (23-31); Chloride 105 mmol/L (98-107); Glucose 106 mg/dL (80-115); Magnesium 2.1 mg/dL (1.6-2.6); Potassium 3.4 mmol/L (3.5-5.1); Sodium 139 mmol/L (136-145)
[2025-03-05 05:31] LABS: INR-International Normal Ratio 1.8; Prothrombin Time 21.4 sec (12.0-14.7)
[2025-03-05 05:32] LABS: PTT 40.6 sec (22.9-36.1)
[2025-03-05 06:01] LABS: Macrocytosis SLIGHT = 6-15 cells HPF (0-5); Plasma Cells 1 % (0-0); Platelet Adequacy Comment Platelets Normal; Smudge Cells 10.9 %
[2025-03-05 06:10] LABS: Hematocrit 28.7 % (36.0-47.0); Hemoglobin 9.7 g/dL (12.0-16.0); Mean Corpuscular Hemoglobin 38.5 pg (27.0-31.0); Mean Corpuscular Volume 113.9 fL (78.0-98.0); Platelet Count 158 10x3/uL (130-400); Red Blood Cell (RBC) Count 2.52 mill/uL (4.20-5.40); White Blood Cell (WBC) Count 6.78 10x3/uL (4.8-10.8)
[2025-03-05] MEDS: Albumin 25% 25 GM (100 mL) BOT IVPB SCH ×2 (08:18→11:46)
[2025-03-05] MEDS: Potassium Chloride 20 MEQ in Premix 1 BAG IVPB SCH (11:32)
[2025-03-05] MEDS: PNEUMOC 20-VAL CONJ-DIP CRM/PF 0.5 ML SYRINGE IM ONE (11:54)
[2025-03-05] MEDS: Potassium Bicarbonate/Cit Ac 20 MEQ TAB PO SCH (12:07)
[2025-03-05] MEDS ORDERED: Lidocaine 1% PF 5 ML VIAL ONE (15:27)
[2025-03-05] MEDS ORDERED: Sodium Bicarbonate 2.5 MEQ/5 ML SDV ONE (15:27)
[2025-03-05 17:40] VITALS: BP 113/76; TEMP 97.6
[2025-03-05] MEDS ORDERED: Thiamine 100 MG TAB PO SCH (21:00)
== END 2025-03-05 19:21 | disposition home or self-care (01) | DRG 434 ==
LOC: ERS 20:42 → 2NO 03-02 00:34 → OBSVTOIN 03-02 14:40 → T4-A 03-02 20:02
PROVIDERS: ADMIT Internal Medicine; ATTEND Internal Medicine
PROC: 30233J1 Transfusion of Nonautologous Serum Albumin into Peripheral Vein, Percutaneous Approach (ICD-10-PCS; 2025-03-02)
PROC: 0W9G3ZZ Drainage of Peritoneal Cavity, Percutaneous Approach (ICD-10-PCS; principal; 2025-03-05)
DX: K70.31 Alcoholic cirrhosis of liver with ascites (principal); E80.6 Other disorders of bilirubin metabolism; F10.10 Alcohol abuse, uncomplicated; Z88.8 Allergy status to other drugs, medicaments and biological substances
CPT/HCPCS: 36415; 49083; 71045; 71275; 74177; 80048; 80053; 80076; 80307; 82105; 83605; 83690; 83735; 83880; 84100; 84484; 85025; 85060; 85610; 85730; 87040; 87070; 87205; 89051; 93005; 93306; 94760; 96374; 96375; 96376; G0378; J2470; J3010; J3411; J3475; P9047; Q9967

== ENCOUNTER 2025-05-29 12:02 | Inpatient (IN) | payer SELFPAY ==
[2025-05-29] MEDS ORDERED: cefTRIAXone (ROCEPHIN) 2 GM VIAL ONE (12:29)
[2025-05-29 13:29] LABS: #Basophils 0.06 10x3/uL (0.0-0.2); #Eosinophils Less than 0.03 10x3/uL (0.0-0.7); #Monocytes 0.87 10x3/uL (0.11-0.59); #Neutrophils 4.92 10x3/uL (1.40-6.50); %Basophils 0.9 % (0.0-1.0); %Eosinophils 0.3 % (0.0-10.0); %Lymphocytes 15.3 % (21.0-51.0); %Monocytes 12.5 % (0.0-10.0); %Neutrophils 70.7 % (42.0-75.0); Hematocrit 27.6 % (36.0-47.0); Hemoglobin 8.9 g/dL (12.0-16.0); Mean Corpuscular Hemoglobin 34.8 pg (27.0-31.0); Mean Corpuscular Volume 107.8 fL (78.0-98.0); Platelet Count 205 10x3/uL (130-400); Red Blood Cell (RBC) Count 2.56 mill/uL (4.20-5.40); White Blood Cell (WBC) Count 6.95 10x3/uL (4.8-10.8)
[2025-05-29 13:46] LABS: Lipase 17 U/L (8-78); Magnesium 1.5 mg/dL (1.6-2.6)
[2025-05-29 13:47] LABS: Acetaminophen Less than 10 mcg/mL (Less than 10); Salicylate Less than 8.0 mg/dL (Less than 8.0)
[2025-05-29 13:48] LABS: ALT (SGPT) 12 U/L (Less than 34); AST (SGOT) 47 U/L (11-34); Albumin 2.5 g/dL (3.1-4.5); Alkaline Phosphatase 80 U/L (40-110); Anion Gap 13 mmol/L (10-20); BUN (Urea Nitrogen) 21 mg/dL (9.8-20.1); Bilirubin, Total 3.2 mg/dL (0.3-1.2); Calc. Creatinine Clearance 0 mL/min (70-130); Calcium 8.8 mg/dL (7.8-10.44); Carbon Dioxide 27 mmol/L (23-31); Chloride 98 mmol/L (98-107); Globulin 4.5 g/dL (2.4-3.5); Glucose 101 mg/dL (80-115); Potassium 3.3 mmol/L (3.5-5.1); Sodium 135 mmol/L (136-145)
[2025-05-29 13:54] LABS: INR-International Normal Ratio 1.8; PTT 40.7 sec (22.9-36.1); Prothrombin Time 20.7 sec (12.0-14.7)
[2025-05-29] MEDS ORDERED: Acetaminophen 325 MG TAB PO PRN (15:49)
[2025-05-29] MEDS ORDERED: Ondansetron PF 4 MG/2 ML Vial IVP PRN (15:49)
[2025-05-29] MEDS ORDERED: Potassium Chloride 20 MEQ in Premix 1 BAG IVPB PRN (16:00)
[2025-05-29] MEDS ORDERED: Electrolyte Replacement Protocol 1 EACH FS SCH (16:00)
[2025-05-29 17:57] VITALS: BMI 21.4
[2025-05-29 18:40] LABS: #Basophils 0.06 10x3/uL (0.0-0.2); #Eosinophils Less than 0.03 10x3/uL (0.0-0.7); #Monocytes 0.84 10x3/uL (0.11-0.59); #Neutrophils 4.10 10x3/uL (1.40-6.50); %Basophils 0.9 % (0.0-1.0); %Eosinophils 0.3 % (0.0-10.0); %Lymphocytes 20.9 % (21.0-51.0); %Monocytes 13.2 % (0.0-10.0); %Neutrophils 64.4 % (42.0-75.0); Hematocrit 23.8 % (36.0-47.0); Hemoglobin 7.4 g/dL (12.0-16.0); Mean Corpuscular Hemoglobin 34.7 pg (27.0-31.0); Mean Corpuscular Volume 111.7 fL (78.0-98.0); Platelet Count 176 10x3/uL (130-400); Red Blood Cell (RBC) Count 2.13 mill/uL (4.20-5.40); White Blood Cell (WBC) Count 6.37 10x3/uL (4.8-10.8)
[2025-05-29 19:13] LABS: Anisocytosis SLIGHT = 6-15 cells HPF (0-5); Burr Cells MODERATE= 6-15 cells HPF (0-1); Macrocytosis MODERATE=16-30 cells HPF (0-5); Platelet Adequacy Comment Platelets Normal; Poikilocytosis SLIGHT = 6-15 cells HPF (0-5); Polychromasia SLIGHT = 2-3 cells HPF (0-2)
[2025-05-29 19:22] LABS: Anion Gap 14 mmol/L (10-20); BUN (Urea Nitrogen) 21 mg/dL (9.8-20.1); Calc. Creatinine Clearance 102 mL/min (70-130); Calcium 8.0 mg/dL (7.8-10.44); Carbon Dioxide 25 mmol/L (23-31); Chloride 100 mmol/L (98-107); Glucose 142 mg/dL (80-115); Potassium 3.1 mmol/L (3.5-5.1); Sodium 136 mmol/L (136-145)
[2025-05-29] MEDS: Pantoprazole 40 MG VIAL IVP SCH (20:58)
[2025-05-29 23:08] LABS: Hematocrit 23.6 % (36.0-47.0); Hemoglobin 7.4 g/dL (12.0-16.0)
[2025-05-30] MEDS ORDERED: Sodium Bicarbonate 2.5 MEQ/5 ML SDV ONE (10:45)
[2025-05-30] MEDS ORDERED: Lidocaine 1% PF 5 ML VIAL ONE (10:45)
[2025-05-30] MEDS: cefTRIAXone\\ROCEPHIN 1 GM in Sodium Chloride 0.9% 100 ML IVPB SCH (17:10)
[2025-05-30 20:43] LABS: #Basophils 0.05 10x3/uL (0.0-0.2); #Eosinophils 0.15 10x3/uL (0.0-0.7); #Monocytes 1.09 10x3/uL (0.11-0.59); #Neutrophils 4.01 10x3/uL (1.40-6.50); %Basophils 0.7 % (0.0-1.0); %Eosinophils 2.2 % (0.0-10.0); %Lymphocytes 23.6 % (21.0-51.0); %Monocytes 15.7 % (0.0-10.0); %Neutrophils 57.7 % (42.0-75.0); Hematocrit 22.3 % (36.0-47.0); Hemoglobin 7.3 g/dL (12.0-16.0); Mean Corpuscular Hemoglobin 34.4 pg (27.0-31.0); Mean Corpuscular Volume 105.2 fL (78.0-98.0); Platelet Count 148 10x3/uL (130-400); Red Blood Cell (RBC) Count 2.12 mill/uL (4.20-5.40); White Blood Cell (WBC) Count 6.95 10x3/uL (4.8-10.8)
[2025-05-30 20:57] LABS: Anion Gap 11 mmol/L (10-20); BUN (Urea Nitrogen) 16 mg/dL (9.8-20.1); Calc. Creatinine Clearance 107 mL/min (70-130); Calcium 7.7 mg/dL (7.8-10.44); Carbon Dioxide 26 mmol/L (23-31); Chloride 103 mmol/L (98-107); Glucose 128 mg/dL (80-115); Potassium 3.3 mmol/L (3.5-5.1); Sodium 137 mmol/L (136-145)
[2025-05-30 20:58] LABS: Magnesium 1.5 mg/dL (1.6-2.6)
[2025-05-31 07:55] LABS: #Basophils 0.06 10x3/uL (0.0-0.2); #Eosinophils 0.15 10x3/uL (0.0-0.7); #Monocytes 1.00 10x3/uL (0.11-0.59); #Neutrophils 4.34 10x3/uL (1.40-6.50); %Basophils 0.8 % (0.0-1.0); %Eosinophils 2.1 % (0.0-10.0); %Lymphocytes 21.3 % (21.0-51.0); %Monocytes 14.1 % (0.0-10.0); %Neutrophils 61.4 % (42.0-75.0); Hematocrit 24.5 % (36.0-47.0); Hemoglobin 7.7 g/dL (12.0-16.0); Mean Corpuscular Hemoglobin 33.9 pg (27.0-31.0); Mean Corpuscular Volume 107.9 fL (78.0-98.0); Platelet Count 168 10x3/uL (130-400); Red Blood Cell (RBC) Count 2.27 mill/uL (4.20-5.40); White Blood Cell (WBC) Count 7.08 10x3/uL (4.8-10.8)
[2025-05-31 08:07] LABS: Albumin 2.2 g/dL (3.1-4.5); Anion Gap 16 mmol/L (10-20); BUN (Urea Nitrogen) 14 mg/dL (9.8-20.1); BUN/Creatinine Ratio 29.79; Calc. Creatinine Clearance 100 mL/min (70-130); Calcium 8.0 mg/dL (7.8-10.44); Carbon Dioxide 22 mmol/L (23-31); Chloride 101 mmol/L (98-107); Glucose 113 mg/dL (80-115); Potassium 3.6 mmol/L (3.5-5.1); Sodium 135 mmol/L (136-145)
[2025-05-31 09:08] LABS: Magnesium 1.5 mg/dL (1.6-2.6)
[2025-05-31] MEDS: PHOS-NAK 1 PKT PACK PO PRN (09:33)
[2025-05-31] MEDS: Magnesium 2 GM/50 ML(in water) 2 GM in Premix 1 BAG IVPB PRN (09:41)
[2025-05-31] MEDS: Octreotide Acetate 1,250 MCG in Sodium Chloride 0.9% 250 ML 250 ML IVPB SCH (13:19)
[2025-05-31] MEDS: Folic Acid 1 MG TAB PO SCH (17:05)
[2025-06-01] MEDS ORDERED: Lidocaine 1% PF 5 ML VIAL ONE (08:53)
[2025-06-01] MEDS ORDERED: PROPOFOL 200 MG/20 ML VIAL ONE (09:04)
[2025-06-01 11:06] LABS: #Basophils 0.06 10x3/uL (0.0-0.2); #Eosinophils 0.14 10x3/uL (0.0-0.7); #Monocytes 0.94 10x3/uL (0.11-0.59); #Neutrophils 2.97 10x3/uL (1.40-6.50); %Basophils 1.2 % (0.0-1.0); %Eosinophils 2.7 % (0.0-10.0); %Lymphocytes 19.8 % (21.0-51.0); %Monocytes 18.3 % (0.0-10.0); %Neutrophils 57.8 % (42.0-75.0); Hematocrit 28.7 % (36.0-47.0); Hemoglobin 9.3 g/dL (12.0-16.0); Mean Corpuscular Hemoglobin 34.1 pg (27.0-31.0); Mean Corpuscular Volume 105.1 fL (78.0-98.0); Platelet Count 131 10x3/uL (130-400); Red Blood Cell (RBC) Count 2.73 mill/uL (4.20-5.40); White Blood Cell (WBC) Count 5.14 10x3/uL (4.8-10.8)
[2025-06-01] MEDS: Folic Acid 1 MG TAB PO SCH (11:20)
[2025-06-01 11:29] LABS: Anion Gap 14 mmol/L (10-20); Chloride 102 mmol/L (98-107); Potassium 3.4 mmol/L (3.5-5.1); Sodium 136 mmol/L (136-145)
[2025-06-01 11:32] LABS: Albumin 2.2 g/dL (3.1-4.5); BUN (Urea Nitrogen) 8 mg/dL (9.8-20.1); BUN/Creatinine Ratio 18.60; Calc. Creatinine Clearance 109 mL/min (70-130); Calcium 7.8 mg/dL (7.8-10.44); Carbon Dioxide 25 mmol/L (23-31); Glucose 127 mg/dL (80-115); Magnesium 1.7 mg/dL (1.6-2.6)
[2025-06-02 05:23] LABS: Albumin 2.1 g/dL (3.1-4.5); Anion Gap 12 mmol/L (10-20); BUN (Urea Nitrogen) 7 mg/dL (9.8-20.1); BUN/Creatinine Ratio 15.91; Calc. Creatinine Clearance 107 mL/min (70-130); Calcium 7.7 mg/dL (7.8-10.44); Carbon Dioxide 24 mmol/L (23-31); Chloride 103 mmol/L (98-107); Glucose 134 mg/dL (80-115); Magnesium 2.0 mg/dL (1.6-2.6); Potassium 3.9 mmol/L (3.5-5.1); Sodium 135 mmol/L (136-145)
[2025-06-02 06:06] LABS: #Basophils 0.06 10x3/uL (0.0-0.2); #Eosinophils 0.25 10x3/uL (0.0-0.7); #Monocytes 1.28 10x3/uL (0.11-0.59); #Neutrophils 4.31 10x3/uL (1.40-6.50); %Basophils 0.8 % (0.0-1.0); %Eosinophils 3.3 % (0.0-10.0); %Lymphocytes 20.6 % (21.0-51.0); %Monocytes 17.1 % (0.0-10.0); %Neutrophils 57.8 % (42.0-75.0); Hematocrit 29.3 % (36.0-47.0); Hemoglobin 9.4 g/dL (12.0-16.0); Mean Corpuscular Hemoglobin 35.1 pg (27.0-31.0); Mean Corpuscular Volume 109.3 fL (78.0-98.0); Platelet Count 170 10x3/uL (130-400); Red Blood Cell (RBC) Count 2.68 mill/uL (4.20-5.40); White Blood Cell (WBC) Count 7.47 10x3/uL (4.8-10.8)
[2025-06-03] MEDS ORDERED: Lidocaine 1% PF 5 ML VIAL ONE (15:29)
[2025-06-03] MEDS ORDERED: Sodium Bicarbonate 2.5 MEQ/5 ML SDV ONE (15:29)
[2025-06-03] MEDS: Cefdinir 300 MG CAP PO SCH (21:43)
[2025-06-03] MEDS: HYDROcodone/Acetaminophen 5/325 mg Tablet PO PRN (21:49)
[2025-06-04 00:27] LABS: Hematocrit 26.9 % (36.0-47.0); Hemoglobin 8.6 g/dL (12.0-16.0)
[2025-06-04] MEDS: Albumin 25% 25 GM (100 mL) BOT IVPB SCH (00:44)
[2025-06-04 05:40] LABS: Magnesium 1.7 mg/dL (1.6-2.6)
[2025-06-04 11:53] VITALS: TEMP 97.6
[2025-06-04 11:55] VITALS: BP 96/58
== END 2025-06-04 11:50 | disposition home or self-care (01) | DRG 432 ==
LOC: ERS 12:02 → 2NO 15:49
PROVIDERS: ADMIT Family Medicine; ATTEND Internal Medicine
PROC: 0W9G3ZZ Drainage of Peritoneal Cavity, Percutaneous Approach (ICD-10-PCS; principal; 2025-05-30)
PROC: 30233N1 Transfusion of Nonautologous Red Blood Cells into Peripheral Vein, Percutaneous Approach (ICD-10-PCS; 2025-05-30)
PROC: 06L38CZ Occlusion of Esophageal Vein with Extraluminal Device, Via Natural or Artificial Opening Endoscopic (ICD-10-PCS; 2025-06-01)
PROC: 0W9G3ZZ Drainage of Peritoneal Cavity, Percutaneous Approach (ICD-10-PCS; 2025-06-03)
DX: K70.31 Alcoholic cirrhosis of liver with ascites (principal); I85.11 Secondary esophageal varices with bleeding; D62 Acute posthemorrhagic anemia; F10.10 Alcohol abuse, uncomplicated; Z88.8 Allergy status to other drugs, medicaments and biological substances; Z82.49 Family history of ischemic heart disease and other diseases of the circulatory system; Z98.891 History of uterine scar from previous surgery; Z98.890 Other specified postprocedural states; Z79.899 Other long term (current) drug therapy
CPT/HCPCS: 36415; 36430; 49083; 80053; 80069; 80307; 82140; 83605; 83690; 83735; 83880; 84100; 84484; 85014; 85018; 85025; 85610; 85730; 86850; 86900; 86901; 86922; 87040; 93005; 96365; 96367; 96375; J0696; J2270; J2354; J2470; J2704; J3010; J3411; J3475; J7030; J7050; J7120; P9016; P9047

== ENCOUNTER 2025-06-23 21:32 | Inpatient (IN) | payer SELFPAY ==
[~2025-06-23 21:32] MED LIST changes: -Iopamidol-370 76% 500 ML MDV (1 ML CHARGE) ONE; +Octreotide Acetate 1,000 mcg/ml MDV ONE; +Sodium Chloride 0.9% 250 ML BAG (BAXTER) ONE
[2025-06-23] MEDS ORDERED: Octreotide Acetate 1,250 MCG in Sodium Chloride 0.9% 250 ML 250 ML IVPB SCH (22:15)
[2025-06-23] MEDS ORDERED: Pantoprazole 80 MG, Admixture Fee 1 EACH in Sodium Chloride 0.9% 100 ML IVPB SCH (22:15)
[2025-06-23 22:17] LABS: #Basophils 0.05 10x3/uL (0.0-0.2); #Eosinophils 0.03 10x3/uL (0.0-0.7); #Monocytes 0.89 10x3/uL (0.11-0.59); #Neutrophils 4.73 10x3/uL (1.40-6.50); %Basophils 0.7 % (0.0-1.0); %Eosinophils 0.4 % (0.0-10.0); %Lymphocytes 17.8 % (21.0-51.0); %Monocytes 12.8 % (0.0-10.0); %Neutrophils 68.0 % (42.0-75.0); Hematocrit 20.6 % (36.0-47.0); Hemoglobin 6.5 g/dL (12.0-16.0); Mean Corpuscular Hemoglobin 32.0 pg (27.0-31.0); Mean Corpuscular Volume 101.5 fL (78.0-98.0); Platelet Count 231 10x3/uL (130-400); Red Blood Cell (RBC) Count 2.03 mill/uL (4.20-5.40); White Blood Cell (WBC) Count 6.96 10x3/uL (4.8-10.8)
[2025-06-23] MEDS ORDERED: Pantoprazole 40 MG VIAL ONE (22:30)
[2025-06-23 22:31] LABS: INR-International Normal Ratio 1.6; PTT 24.0 sec (22.9-36.1); Prothrombin Time 19.0 sec (12.0-14.7)
[2025-06-23 23:46] LABS: ALT (SGPT) 12 U/L (Less than 34); AST (SGOT) 45 U/L (11-34); Albumin 2.1 g/dL (3.1-4.5); Alkaline Phosphatase 62 U/L (40-110); Anion Gap 16 mmol/L (10-20); BUN (Urea Nitrogen) 17 mg/dL (9.8-20.1); Bilirubin, Total 2.1 mg/dL (0.3-1.2); Calc. Creatinine Clearance 0 mL/min (70-130); Calcium 8.0 mg/dL (7.8-10.44); Carbon Dioxide 18 mmol/L (23-31); Chloride 105 mmol/L (98-107); Globulin 3.8 g/dL (2.4-3.5); Glucose 110 mg/dL (80-115); Lipase 26 U/L (8-78); Potassium 4.5 mmol/L (3.5-5.1); Sodium 134 mmol/L (136-145)
[2025-06-24] MEDS ORDERED: Ondansetron PF 4 MG/2 ML Vial ONE ×2 (00:09→10:17)
[2025-06-24] MEDS ORDERED: Ondansetron PF 4 MG/2 ML Vial IVP PRN (01:17)
[2025-06-24 01:43] VITALS: BMI 22.6
[2025-06-24] MEDS: cefTRIAXone\\ROCEPHIN 1 GM in Sodium Chloride 0.9% 100 ML IVPB SCH (02:09)
[2025-06-24 06:57] LABS: #Basophils 0.07 10x3/uL (0.0-0.2); #Eosinophils Less than 0.03 10x3/uL (0.0-0.7); #Monocytes 1.01 10x3/uL (0.11-0.59); #Neutrophils 11.68 10x3/uL (1.40-6.50); %Basophils 0.5 % (0.0-1.0); %Eosinophils 0.0 % (0.0-10.0); %Lymphocytes 11.1 % (21.0-51.0); %Monocytes 7.0 % (0.0-10.0); %Neutrophils 80.9 % (42.0-75.0); Hematocrit 27.4 % (36.0-47.0); Hemoglobin 8.4 g/dL (12.0-16.0); Mean Corpuscular Hemoglobin 30.8 pg (27.0-31.0); Mean Corpuscular Volume 100.4 fL (78.0-98.0); Platelet Count 195 10x3/uL (130-400); Red Blood Cell (RBC) Count 2.73 mill/uL (4.20-5.40); White Blood Cell (WBC) Count 14.43 10x3/uL (4.8-10.8)
[2025-06-24 07:13] LABS: INR-International Normal Ratio 1.7; PTT 35.8 sec (22.9-36.1); Prothrombin Time 20.2 sec (12.0-14.7)
[2025-06-24 07:25] LABS: ALT (SGPT) 15 U/L (Less than 34); AST (SGOT) 51 U/L (11-34); Albumin 2.2 g/dL (3.1-4.5); Alkaline Phosphatase 63 U/L (40-110); Anion Gap 15 mmol/L (10-20); BUN (Urea Nitrogen) 20 mg/dL (9.8-20.1); Bilirubin, Total 2.6 mg/dL (0.3-1.2); Calc. Creatinine Clearance 99 mL/min (70-130); Calcium 8.1 mg/dL (7.8-10.44); Carbon Dioxide 18 mmol/L (23-31); Chloride 106 mmol/L (98-107); Globulin 3.8 g/dL (2.4-3.5); Glucose 108 mg/dL (80-115); Potassium 4.7 mmol/L (3.5-5.1); Sodium 134 mmol/L (136-145)
[2025-06-24] MEDS: Mupirocin 1 GM TUBE NASAL DECOLONIZATION NASAL SCH (08:56)
[2025-06-24] MEDS ORDERED: PROPOFOL 20 ML ONE (09:16)
[2025-06-24] MEDS ORDERED: Rocuronium Bromide 10 MG/ML (10ML VIAL) ONE (10:17)
[2025-06-24] MEDS ORDERED: Calcium Chloride 1 GM/10 ML Abboject SYRINGE ONE ×2 (10:17→10:50)
[2025-06-24] MEDS ORDERED: SUGAMMADEX SODIUM 200 MG/2 ML VIAL ONE (10:34)
[2025-06-24] MEDS ORDERED: PHENYLEPHRINE-NS 100 MCG/ML 10 ML SYRINGE ONE (10:34)
[2025-06-24] MEDS ORDERED: Propofol BOLUS 1,000 MG/100 ML VIAL IV PRN (11:45)
[2025-06-24] MEDS ORDERED: DISCONTINUE PREVIOUS NARCOTIC PAIN MEDICATIONS AND BENZODIAZEPINES FS SCH (11:45)
[2025-06-24] MEDS ORDERED: Fentanyl BOLUS 100 ML IVPB PRN (11:45)
[2025-06-24] MEDS ORDERED: fentaNYL PF 100 MCG/2 ML SYRINGE ONE (11:54)
[2025-06-24 13:33] LABS: Hematocrit 35.5 % (36.0-47.0); Hemoglobin 11.4 g/dL (12.0-16.0)
[2025-06-24] MEDS: Multivitamins, Adult 10 ML, Folic Acid 1 MG, Thiamine HCl 100 MG in Dextrose 5 %-0.45 %... IV SCH (13:52)
[2025-06-24 21:46] LABS: Hematocrit 35.9 % (36.0-47.0); Hemoglobin 12.7 g/dL (12.0-16.0)
[2025-06-25] MEDS: Octreotide Acetate 1,250 MCG in Sodium Chloride 0.9% 250 ML 250 ML IVPB SCH (02:20)
[2025-06-25 03:31] LABS: #Basophils Less than 0.03 10x3/uL (0.0-0.2); #Eosinophils Less than 0.03 10x3/uL (0.0-0.7); #Monocytes 0.99 10x3/uL (0.11-0.59); #Neutrophils 6.21 10x3/uL (1.40-6.50); %Basophils 0.2 % (0.0-1.0); %Eosinophils 0.0 % (0.0-10.0); %Lymphocytes 14.5 % (21.0-51.0); %Monocytes 11.7 % (0.0-10.0); %Neutrophils 73.1 % (42.0-75.0); Hematocrit 32.0 % (36.0-47.0); Hemoglobin 10.9 g/dL (12.0-16.0); Mean Corpuscular Hemoglobin 31.5 pg (27.0-31.0); Mean Corpuscular Volume 92.5 fL (78.0-98.0); Platelet Count 161 10x3/uL (130-400); Red Blood Cell (RBC) Count 3.46 mill/uL (4.20-5.40); White Blood Cell (WBC) Count 8.49 10x3/uL (4.8-10.8)
[2025-06-25 03:44] LABS: INR-International Normal Ratio 1.6; Prothrombin Time 19.4 sec (12.0-14.7)
[2025-06-25 03:48] LABS: ALT (SGPT) 11 U/L (Less than 34); AST (SGOT) 47 U/L (11-34); Albumin 2.1 g/dL (3.1-4.5); Alkaline Phosphatase 61 U/L (40-110); Anion Gap 14 mmol/L (10-20); BUN (Urea Nitrogen) 21 mg/dL (9.8-20.1); Bilirubin, Total 3.3 mg/dL (0.3-1.2); Calc. Creatinine Clearance 87 mL/min (70-130); Calcium 8.6 mg/dL (7.8-10.44); Carbon Dioxide 17 mmol/L (23-31); Chloride 110 mmol/L (98-107); Globulin 3.7 g/dL (2.4-3.5); Glucose 129 mg/dL (80-115); Magnesium 1.7 mg/dL (1.6-2.6); Potassium 4.5 mmol/L (3.5-5.1); Sodium 136 mmol/L (136-145)
[2025-06-25] MEDS: Norepinephrine 8 MG/0.9% NS 250 ML IVPB SCH (04:40)
[2025-06-25] MEDS: Norepinephrine 8 MG/0.9% NS 250 ML ONE (05:28)
[2025-06-25] MEDS: Albumin 5% 25 GM (500 mL) BOT IVPB SCH (05:28)
[2025-06-25 05:33] LABS: Actual Bicarbonate (HCO3a) 18.7 mEq/L (22-28); Base Excess (BEa) -2.9 mEq/L (-2.0 to +3.0); Calcium, Ionized (arterial) 1.21 mmol/L (1.12-1.30); Hematocrit-ABG 33 % (36.0-47.0); Hemoglobin (Hb) 11.3 g/dL (12.0-16.0); O2 Tension (PaO2), arterial 75.4 mmHg (> 80.0); Potassium - ABG Lab 4.29 mmol/L (3.70-5.30); pH, Arterial 7.507 (7.35-7.45)
[2025-06-25 05:34] LABS: CO2 Tension 24.2 mmHg (35.0-45.0); Puncture Site Right Radial artery
[2025-06-25] MEDS ORDERED: Folic Acid 1 MG TAB PO SCH (09:00)
[2025-06-25] MEDS ORDERED: Thiamine 100 MG TAB PO SCH (09:00)
[2025-06-25] MEDS ORDERED: Multivit, Therapeutic 1 TAB PO SCH (09:00)
[2025-06-25] MEDS: Pantoprazole 40 MG VIAL IVP SCH (10:25)
[2025-06-26 04:35] LABS: #Basophils 0.03 10x3/uL (0.0-0.2); #Eosinophils 0.06 10x3/uL (0.0-0.7); #Monocytes 0.63 10x3/uL (0.11-0.59); #Neutrophils 4.57 10x3/uL (1.40-6.50); %Basophils 0.5 % (0.0-1.0); %Eosinophils 0.9 % (0.0-10.0); %Lymphocytes 19.8 % (21.0-51.0); %Monocytes 9.5 % (0.0-10.0); %Neutrophils 69.0 % (42.0-75.0); Hematocrit 21.9 % (36.0-47.0); Hemoglobin 7.4 g/dL (12.0-16.0); Mean Corpuscular Hemoglobin 31.5 pg (27.0-31.0); Mean Corpuscular Volume 93.2 fL (78.0-98.0); Platelet Count 125 10x3/uL (130-400); Red Blood Cell (RBC) Count 2.35 mill/uL (4.20-5.40); White Blood Cell (WBC) Count 6.62 10x3/uL (4.8-10.8)
[2025-06-26 04:45] LABS: ALT (SGPT) 10 U/L (Less than 34); AST (SGOT) 37 U/L (11-34); Albumin 1.9 g/dL (3.1-4.5); Alkaline Phosphatase 41 U/L (40-110); Anion Gap 10 mmol/L (10-20); BUN (Urea Nitrogen) 17 mg/dL (9.8-20.1); Bilirubin, Total 1.8 mg/dL (0.3-1.2); Calc. Creatinine Clearance 99 mL/min (70-130); Calcium 7.3 mg/dL (7.8-10.44); Carbon Dioxide 18 mmol/L (23-31); Chloride 112 mmol/L (98-107); Globulin 2.5 g/dL (2.4-3.5); Glucose 242 mg/dL (80-115); Potassium 3.2 mmol/L (3.5-5.1); Sodium 137 mmol/L (136-145)
[2025-06-26 05:27] LABS: Magnesium 1.5 mg/dL (1.6-2.6)
[2025-06-26 05:31] LABS: Hematocrit 23.4 % (36.0-47.0); Hemoglobin 7.6 g/dL (12.0-16.0)
[2025-06-26] MEDS ORDERED: Magnesium Sulfate 4 GM in Sodium Chloride 0.9% 250 ML 250 ML IVPB SCH (05:45)
[2025-06-26] MEDS: Potassium Chloride 20 MEQ in Premix 1 BAG IVPB SCH (06:16)
[2025-06-26] MEDS: Magnesium Sulfate 4 GM / 100ML WATER Premix IVPB SCH (06:21)
[2025-06-26] MEDS: Potassium Chloride 40 MEQ in Premix 1 BAG IVPB SCH (06:39)
[2025-06-26] MEDS ORDERED: Magnesium Sulfate In Water 4 GM in Premix 1 BAG IVPB PRN (09:30)
[2025-06-26] MEDS ORDERED: PHOS-NAK 1 PKT PACK PO PRN (09:30)
[2025-06-26] MEDS ORDERED: Electrolyte Replacement Protocol 1 EACH FS SCH (09:30)
[2025-06-26] MEDS: DC Sedation Protocol FS SCH (09:52)
[2025-06-26] MEDS: Furosemide 40 MG TAB PO SCH (09:55)
[2025-06-26] MEDS: Furosemide 40 MG (4 mL) VIAL IVP SCH (10:03)
[2025-06-26 12:51] LABS: Hematocrit 32.5 % (36.0-47.0); Hemoglobin 10.4 g/dL (12.0-16.0)
[2025-06-26 13:30] LABS: Potassium 4.2 mmol/L (3.5-5.1)
[2025-06-27 08:30] LABS: #Basophils 0.05 10x3/uL (0.0-0.2); #Eosinophils 0.05 10x3/uL (0.0-0.7); #Monocytes 0.90 10x3/uL (0.11-0.59); #Neutrophils 7.67 10x3/uL (1.40-6.50); %Basophils 0.5 % (0.0-1.0); %Eosinophils 0.5 % (0.0-10.0); %Lymphocytes 9.1 % (21.0-51.0); %Monocytes 9.4 % (0.0-10.0); %Neutrophils 80.2 % (42.0-75.0); Hematocrit 34.3 % (36.0-47.0); Hemoglobin 11.1 g/dL (12.0-16.0); Mean Corpuscular Hemoglobin 31.0 pg (27.0-31.0); Mean Corpuscular Volume 95.8 fL (78.0-98.0); Platelet Count 164 10x3/uL (130-400); Red Blood Cell (RBC) Count 3.58 mill/uL (4.20-5.40); White Blood Cell (WBC) Count 9.57 10x3/uL (4.8-10.8)
[2025-06-27 08:50] LABS: Anion Gap 11 mmol/L (10-20); BUN (Urea Nitrogen) 15 mg/dL (9.8-20.1); Calc. Creatinine Clearance 102 mL/min (70-130); Calcium 8.2 mg/dL (7.8-10.44); Carbon Dioxide 19 mmol/L (23-31); Chloride 112 mmol/L (98-107); Glucose 102 mg/dL (80-115); Potassium 3.9 mmol/L (3.5-5.1); Sodium 138 mmol/L (136-145)
[2025-06-27 08:51] LABS: Magnesium 2.0 mg/dL (1.6-2.6)
[2025-06-27] MEDS: Scopolamine 1 mg/72 hour Patch TD SCH (10:17)
[2025-06-27] MEDS: PNEUMOC 20-VAL CONJ-DIP CRM/PF 0.5 ML SYRINGE IM ONE (10:18)
[2025-06-27 14:17] LABS: Actual Bicarbonate (HCO3a) 17.0 mEq/L (22-28); Base Excess (BEa) -6.4 mEq/L (-2.0 to +3.0); CO2 Tension 27.0 mmHg (35.0-45.0); Calcium, Ionized (arterial) 1.16 mmol/L (1.12-1.30); Hematocrit-ABG 31 % (36.0-47.0); Hemoglobin (Hb) 10.5 g/dL (12.0-16.0); Potassium - ABG Lab 3.39 mmol/L (3.70-5.30); pH, Arterial 7.416 (7.35-7.45)
[2025-06-27 14:18] LABS: O2 Tension (PaO2), arterial 57.2 mmHg (> 80.0)
[2025-06-27] MEDS: Albumin 5% 25 GM (500 mL) BOT IVPB SCH (14:29)
[2025-06-27] MEDS: Norepinephrine 8 MG/0.9% NS 250 ML IVPB SCH (15:26)
[2025-06-27] MEDS: Norepinephrine 8 MG/0.9% NS 250 ML ONE (15:26)
[2025-06-28 05:04] LABS: #Basophils 0.05 10x3/uL (0.0-0.2); #Eosinophils 0.12 10x3/uL (0.0-0.7); #Monocytes 1.04 10x3/uL (0.11-0.59); #Neutrophils 7.07 10x3/uL (1.40-6.50); %Basophils 0.5 % (0.0-1.0); %Eosinophils 1.2 % (0.0-10.0); %Lymphocytes 14.6 % (21.0-51.0); %Monocytes 10.7 % (0.0-10.0); %Neutrophils 72.5 % (42.0-75.0); Hematocrit 29.3 % (36.0-47.0); Hemoglobin 9.5 g/dL (12.0-16.0); Mean Corpuscular Hemoglobin 31.4 pg (27.0-31.0); Mean Corpuscular Volume 96.7 fL (78.0-98.0); Platelet Count 178 10x3/uL (130-400); Red Blood Cell (RBC) Count 3.03 mill/uL (4.20-5.40); White Blood Cell (WBC) Count 9.75 10x3/uL (4.8-10.8)
[2025-06-28 05:18] LABS: Anion Gap 13 mmol/L (10-20); BUN (Urea Nitrogen) 13 mg/dL (9.8-20.1); Calc. Creatinine Clearance 102 mL/min (70-130); Calcium 8.1 mg/dL (7.8-10.44); Carbon Dioxide 17 mmol/L (23-31); Chloride 114 mmol/L (98-107); Glucose 114 mg/dL (80-115); Potassium 3.5 mmol/L (3.5-5.1); Sodium 140 mmol/L (136-145)
[2025-06-28 06:31] LABS: Hemoglobin 10.3 g/dL (12.0-16.0)
[2025-06-28] MEDS: FLU (Fluad Triv) 25-26 (65UP)PF 45 MCG/0.5 ML Syringe IM ONE (07:38)
[2025-06-28] MEDS: Lactulose 10 GM/15 ML Oral Solution PR SCH (09:00)
[2025-06-29 04:19] LABS: #Basophils 0.04 10x3/uL (0.0-0.2); #Eosinophils 0.21 10x3/uL (0.0-0.7); #Monocytes 1.05 10x3/uL (0.11-0.59); #Neutrophils 5.51 10x3/uL (1.40-6.50); %Basophils 0.5 % (0.0-1.0); %Eosinophils 2.6 % (0.0-10.0); %Lymphocytes 14.5 % (21.0-51.0); %Monocytes 13.1 % (0.0-10.0); %Neutrophils 68.9 % (42.0-75.0); Hematocrit 30.5 % (36.0-47.0); Hemoglobin 10.1 g/dL (12.0-16.0); Mean Corpuscular Hemoglobin 31.6 pg (27.0-31.0); Mean Corpuscular Volume 95.3 fL (78.0-98.0); Platelet Count 185 10x3/uL (130-400); Red Blood Cell (RBC) Count 3.20 mill/uL (4.20-5.40); White Blood Cell (WBC) Count 8.00 10x3/uL (4.8-10.8)
[2025-06-29 04:53] LABS: Anion Gap 10 mmol/L (10-20); BUN (Urea Nitrogen) 8 mg/dL (9.8-20.1); Calc. Creatinine Clearance 122 mL/min (70-130); Calcium 8.2 mg/dL (7.8-10.44); Carbon Dioxide 18 mmol/L (23-31); Chloride 114 mmol/L (98-107); Glucose 110 mg/dL (80-115); Magnesium 1.7 mg/dL (1.6-2.6); Potassium 3.4 mmol/L (3.5-5.1); Sodium 139 mmol/L (136-145)
[2025-06-29] MEDS: Potassium Chloride 20 MEQ in Premix 1 BAG IVPB PRN (05:07)
[2025-06-29] MEDS: Potassium Phosphate 15 MMOL / NS 100 ML IVPB SCH (05:16)
[2025-06-29 07:49] LABS: INR-International Normal Ratio 1.6; Prothrombin Time 19.3 sec (12.0-14.7)
[2025-06-29 07:54] LABS: ALT (SGPT) 14 U/L (Less than 34); AST (SGOT) 41 U/L (11-34); Albumin 2.5 g/dL (3.1-4.5); Alkaline Phosphatase 58 U/L (40-110); Bilirubin, Direct 1.4 mg/dL (0.1-0.3); Bilirubin, Total 2.3 mg/dL (0.3-1.2)
[2025-06-29] MEDS: Mirtazapine 15 MG TAB PO SCH (19:52)
[2025-06-30 05:40] LABS: #Basophils 0.06 10x3/uL (0.0-0.2); #Eosinophils 0.30 10x3/uL (0.0-0.7); #Monocytes 1.12 10x3/uL (0.11-0.59); #Neutrophils 4.40 10x3/uL (1.40-6.50); %Basophils 0.8 % (0.0-1.0); %Eosinophils 4.2 % (0.0-10.0); %Lymphocytes 18.3 % (21.0-51.0); %Monocytes 15.5 % (0.0-10.0); %Neutrophils 60.9 % (42.0-75.0); Hematocrit 34.2 % (36.0-47.0); Hemoglobin 10.6 g/dL (12.0-16.0); Mean Corpuscular Hemoglobin 31.2 pg (27.0-31.0); Mean Corpuscular Volume 100.6 fL (78.0-98.0); Platelet Count 179 10x3/uL (130-400); Red Blood Cell (RBC) Count 3.40 mill/uL (4.20-5.40); White Blood Cell (WBC) Count 7.22 10x3/uL (4.8-10.8)
[2025-06-30 06:06] LABS: Albumin 2.5 g/dL (3.1-4.5); Anion Gap 10 mmol/L (10-20); BUN (Urea Nitrogen) 6 mg/dL (9.8-20.1); Calcium 8.2 mg/dL (7.8-10.44); Carbon Dioxide 17 mmol/L (23-31); Chloride 113 mmol/L (98-107); Globulin 3.6 g/dL (2.4-3.5); Glucose 118 mg/dL (80-115); Magnesium 1.6 mg/dL (1.6-2.6); Potassium 4.0 mmol/L (3.5-5.1); Sodium 136 mmol/L (136-145)
[2025-06-30 06:23] LABS: ALT (SGPT) 15 U/L (Less than 34); AST (SGOT) 51 U/L (11-34); Alkaline Phosphatase 65 U/L (40-110); Bilirubin, Total 2.0 mg/dL (0.3-1.2); Calc. Creatinine Clearance 144 mL/min (70-130)
[2025-06-30] MEDS ORDERED: Lidocaine 1% PF 5 ML VIAL ONE (09:45)
[2025-06-30] MEDS ORDERED: Sodium Bicarbonate 2.5 MEQ/5 ML SDV ONE (09:45)
[2025-06-30 12:26] VITALS: BMI 26.9
[2025-06-30] MEDS: Albumin 25% 25 GM (100 mL) BOT IVPB SCH (14:56)
[2025-07-01 08:29] VITALS: BP 130/69; TEMP 99.2
[2025-07-01] MEDS: Lactulose 20 GM (30 mL) UDCUP PO SCH (10:02)
== END 2025-07-01 14:55 | disposition left against medical advice (07) | DRG 432 ==
LOC: ERS 21:32 → IMCU/EMU 23:34 → CCU 06-24 12:21 → T4-B 06-29 14:31
PROVIDERS: ADMIT Internal Medicine; ATTEND Internal Medicine
PROC: 30233N1 Transfusion of Nonautologous Red Blood Cells into Peripheral Vein, Percutaneous Approach (ICD-10-PCS; 2025-06-23)
PROC: 06L38CZ Occlusion of Esophageal Vein with Extraluminal Device, Via Natural or Artificial Opening Endoscopic (ICD-10-PCS; principal; 2025-06-24)
PROC: 5A1945Z Respiratory Ventilation, 24-96 Consecutive Hours (ICD-10-PCS; 2025-06-24)
PROC: 0BH17EZ Insertion of Endotracheal Airway into Trachea, Via Natural or Artificial Opening (ICD-10-PCS; 2025-06-24)
PROC: 0T9B70Z Drainage of Bladder with Drainage Device, Via Natural or Artificial Opening (ICD-10-PCS; 2025-06-25)
PROC: 30233J1 Transfusion of Nonautologous Serum Albumin into Peripheral Vein, Percutaneous Approach (ICD-10-PCS; 2025-06-25)
PROC: 3E033XZ Introduction of Vasopressor into Peripheral Vein, Percutaneous Approach (ICD-10-PCS; 2025-06-25)
PROC: 4A133R1 Monitoring of Arterial Saturation, Peripheral, Percutaneous Approach (ICD-10-PCS; 2025-06-25)
PROC: 5A0945A Assistance with Respiratory Ventilation, 24-96 Consecutive Hours, High Flow/Velocity Cannula (ICD-10-PCS; 2025-06-27)
PROC: 0W9G3ZZ Drainage of Peritoneal Cavity, Percutaneous Approach (ICD-10-PCS; 2025-06-30)
PROC: 3E03329 Introduction of Other Anti-infective into Peripheral Vein, Percutaneous Approach (ICD-10-PCS; 2025-07-01)
DX: K70.31 Alcoholic cirrhosis of liver with ascites (principal); J96.01 Acute respiratory failure with hypoxia; N18.6 End stage renal disease; K92.2 Gastrointestinal hemorrhage, unspecified; D62 Acute posthemorrhagic anemia; K76.6 Portal hypertension; I24.89 Other forms of acute ischemic heart disease; E44.0 Moderate protein-calorie malnutrition; I95.3 Hypotension of hemodialysis; E87.6 Hypokalemia; Z53.29 Procedure and treatment not carried out because of patient's decision for other reasons; Z88.8 Allergy status to other drugs, medicaments and biological substances; Z98.891 History of uterine scar from previous surgery; Z98.51 Tubal ligation status; Z98.890 Other specified postprocedural states; Z91.199 Patient's noncompliance with other medical treatment and regimen due to unspecified reason; K72.90 Hepatic failure, unspecified without coma; E80.6 Other disorders of bilirubin metabolism; Z99.2 Dependence on renal dialysis; Z68.26 Body mass index [BMI] 26.0-26.9, adult; D63.1 Anemia in chronic kidney disease
CPT/HCPCS: 36415; 36430; 36600; 49083; 71045; 74018; 80048; 80053; 80076; 82042; 82140; 82805; 83690; 83735; 84100; 84157; 85025; 85610; 85730; 86850; 86900; 86901; 86922; 87040; 87070; 87205; 94002; 94003; 94640; 94760; 96365; 96368; 96375; 96376; J0696; J1100; J1630; J1940; J2060; J2250; J2270; J2272; J2354; J2405; J2470; J2704; J3010; J3411; J3475; J3480; J7030; J7042; J7050; P9016; P9045; P9047